=== PATIENT | female | born 1975 | race Caucasian/White ===

== ENCOUNTER 2017-10-25 21:16 | Emergency (ER) | payer BC, SELFPAY ==
[2017-10-25 21:17] VITALS: BP 124/79; PULSE 78; RESP 16; TEMP 36.7; O2SAT 100; BMI 21.4
--- NOTE | 2017-10-25 22:16 | US_ITS ---
STUDY: ABDOMINAL ULTRASOUND - RIGHT UPPER QUADRANT REASON FOR VISIT: Female, 42 years old. Right upper quadrant pain. TECHNIQUE: Ultrasound evaluation of the right upper quadrant was performed with real-time and static hamlin-scale imaging. TECHNICAL QUALITY: Adequate. COMPARISON: None. FINDINGS: Liver: The liver measures 15.6 cm. There is normal echogenicity of the liver. The bile ducts are within normal limits. There is hepatic color flow. The direction of portal flow is hepatopetal. There is no demonstrated mass lesion. Gallbladder: Normal distended gallbladder. The gallbladder wall measures 2 mm. There is a negative sonographic Sinclair's sign. There is no pericholecystic fluid. There are no gallstones. Common Bile Duct (C.B.D.): The common bile duct measures 3 mm. Pancreas: Normal size of the head, body and tail of the pancreas. There is normal echogenicity of the pancreas. There is no demonstrated pancreatic mass or cyst. Right Kidney: Normal size of the right kidney. The right kidney measures 11.1 x 4.5 x 5.5 cm. Normal renal cortex. The right cortex measures 1.4 cm. There is a 1.8 cm cyst in the lower pole of the right kidney with internal echoes/septations. There are small echogenic shadows in the left kidney, the largest measures about 6 mm which could represent focal scar or nonobstructing stones. There is no right hydronephrosis. US/Gallbladder IMPRESSION: No evidence of gallstones. Small cyst in the right kidney. Questionable small nonobstructing stone in the lower pole of the right kidney without evidence of hydronephrosis. Electronically Signed: Rodrigo Farr MD at 23:17 EDT Tel , Service support ,
[2017-10-25] MEDS: Ketorolac 30 MG/ML Syringe IV (22:32)
[2017-10-25] MEDS: proMETHazine 25 MG/ML Syringe 12.5 MG IV (22:32)
[2017-10-25] MEDS: 0.9% Normal Saline 1,000 ML 1000 ML IV (22:32)
[2017-10-25 22:51] LABS: Absolute Lymphocyte Count 2.17 X10^3/ul (0.83-4.51); Absolute Neutrophil Count 11.2 X10^3/uL (2.0-7.7); Basophil# 0.03 X10^3/uL; Basophil% 0.2 % (0-1); Eosinophil# 0.04 X10^3/uL; Eosinophils% 0.3 % (0-5); Hematocrit 39.3 % (37-47); Hemoglobin 12.8 g/dl (12.0-15.0); Lymphocyte # 2.17 X10^3/ul (4.0); Lymphocyte % 15.6 % (19-41); Mean Corp Hgb Conc 32.6 g/gl (32-36); Mean Corpuscular Hgb 29.8 pg (27.0-32.0); Mean Corpuscular Volume 91.4 fL (81-99); Mean Platelet Vol. 10.3 fl (6.2-12.0); Monocyte# 0.47 X10^3/uL; Monocyte% 3.4 % (0-10); Neutrophil # 11.21 X10^3/uL (2.7-7.7); Neutrophil % 80.4 % (47-70); POSITIVE COUNT NO; POSITIVE DIFFERENTIAL NO; POSITIVE MORPHOLOGY NO; Platelet Count 400 K/mm3 (150-450); RBC Distribution Width CV 13.4 % (11.6-14.6); RBC Distribution Width SD 44.5 fl (35.1-43.9); White Blood Count 13.9 K/mm3 (4.4-11.0)
[2017-10-25 23:11] LABS: AST(SGOT) 14 U/L (15-37); Alanine Aminotransfer ALT/SGPT 17 U/L (13-56); Albumin, Serum 4.1 g/dL (3.2-5.0); Alkaline Phosphatase 73 U/L (45-117); Anion Gap 7 (5-15); BUN 14 mg/dL (7-18); BUN/Creat Ratio 18.5 RATIO (10-20); Bilirubin, Direct 0.12 mg/dL (0.00-0.30); Calcium,Total 9.1 mg/dL (8.5-10.1); Chloride 106 mmol/L (98-107); Creatinine, Serum 0.76 mg/dL (0.55-1.02); EST Glomerular Filtration Rate 88 mL/min (>60); Est Glom Filt Rate - Afr Amer 106 mL/min (>60); Estimated Creatinine Clearance 78.14 ml/min; Globulin 3.6 g/dL (2.2-4.2); Glucose 92 mg/dL (74-106); Lipase 103 U/L (73-393); Potassium 3.8 mmol/L (3.5-5.1); Protein, Total 7.7 g/dL (6.4-8.2); Sodium Level 138 mmol/L (136-145)
--- NOTE | 2017-10-25 23:32 | ED.VISSUMM ---
- ER Visit Summary Date of Service: 10/25/17 Chief Complaint: Right upper quadrant abdominal pain. History of Present Illness: The patient is a 42 F past medical history of kidney stones. States that for the last 2 weeks she has had gradual intermittent right upper quadrant abdominal pain with associated nausea vomiting. Last menstrual period was 2-3 weeks ago. Denies any dysuria. Has had a history of kidney stones in the past. No other prior abdominal surgery. Denies any trauma. No fever. No diarrhea. Physical Examination: Middle-aged female no acute distress vital signs stable afebrile. H EENT exam moist mucous membranes otherwise unremarkable. Neck nontender no lymphadenopathy. Lungs clear to auscultation bilaterally. Heart regular rate and rhythm no murmur. Abdomen soft nondistended. Normal bowel sounds. No peritoneal signs. Mild right upper quadrant tenderness. No Sinclair sign. Right lower quadrants unremarkable. No signs of trauma to the abdomen. Moving all 4 extremities. Neurovascular intact. Calves nontender no edema. Back exam nontender. Neurologically awake and alert without focal deficits. Test Results: CBC slightly elevated 13.9 with a normal H&H. No bands. Chemistries normal. Liver enzymes normal. Lipase normal. Right upper quadrant ultrasound showed normal gallbladder. No gallstones. No wall thickening nor any pericholecystic fluid. There was a right renal cyst is an incidental finding. Emergency Department Course and Treatment: Patient treated with IV fluids, Toradol and Phenergan. Feeling improved. Abdomen benign. No peritoneal signs. Treatment Plan: Zofran as needed for nausea. Motrin for pain. Call and follow-up with her primary care physician and she will be assigned to Dr. Carlos Harris. She may need a HIDA scan to rule out gallbladder dysfunction since there is no signs of obstruction, infection or stone. Disposition: Discharge Impression: Acute right upper quadrant abdominal pain of uncertain etiology with nausea and vomiting This note was generated with [employer] dictation software. It may contain incorrect words, spelling, and punctuation that were not noted in review of the chart prior to signing ED Disposition - Plan for ED Patient: Chief Complaint: Abd Pain Referrals: Care Physician,No Primary [Primary Care Provider] -
--- NOTE | 2017-10-25 23:35 | ED.DCSUM_ITS ---
- ER Visit Summary Date of Service: 10/25/17 Chief Complaint: Right upper quadrant abdominal pain. History of Present Illness: The patient is a 42 F past medical history of kidney stones. States that for the last 2 weeks she has had gradual intermittent right upper quadrant abdominal pain with associated nausea vomiting. Last menstrual period was 2-3 weeks ago. Denies any dysuria. Has had a history of kidney stones in the past. No other prior abdominal surgery. Denies any trauma. No fever. No diarrhea. Physical Examination: Middle-aged female no acute distress vital signs stable afebrile. H EENT exam moist mucous membranes otherwise unremarkable. Neck nontender no lymphadenopathy. Lungs clear to auscultation bilaterally. Heart regular rate and rhythm no murmur. Abdomen soft nondistended. Normal bowel sounds. No peritoneal signs. Mild right upper quadrant tenderness. No Sinclair sign. Right lower quadrants unremarkable. No signs of trauma to the abdomen. Moving all 4 extremities. Neurovascular intact. Calves nontender no edema. Back exam nontender. Neurologically awake and alert without focal deficits. Test Results: CBC slightly elevated 13.9 with a normal H&H. No bands. Chemistries normal. Liver enzymes normal. Lipase normal. Right upper quadrant ultrasound showed normal gallbladder. No gallstones. No wall thickening nor any pericholecystic fluid. There was a right renal cyst is an incidental finding. Emergency Department Course and Treatment: Patient treated with IV fluids, Toradol and Phenergan. Feeling improved. Abdomen benign. No peritoneal signs. Treatment Plan: Zofran as needed for nausea. Motrin for pain. Call and follow- up with her primary care physician and she will be assigned to Dr. Carlos Harris. She may need a HIDA scan to rule out gallbladder dysfunction since there is no signs of obstruction, infection or stone. Disposition: Discharge Impression: Acute right upper quadrant abdominal pain of uncertain etiology with nausea and vomiting This note was generated with [employer] dictation software. It may contain incorrect words, spelling, and punctuation that were not noted in review of the chart prior to signing ED Disposition - Plan for ED Patient: Chief Complaint: Abd Pain Referrals: Care Physician,No Primary [Primary Care Provider] -
--- NOTE | 2017-10-25 23:35 | ED.DEP ---
ED Disposition - Plan for ED Patient: Disposition: Home or Assisted Living Chief Complaint: Abd Pain Instructions: ED Abdominal Pain Unkn Cause Prescriptions: Ondansetron [Zofran Odt] 4 mg PO Q4H PRN PRN #14 tab.rapdis PRN Reason: Nausea Referrals: Harley Edwards MD [STAFF PHYSICIAN] - As soon as possible Additional Instructions: Labs unremarkable. Ultrasound your gallbladder shows no gallstones or signs of gallbladder disease. You need to follow-up you may need a HIDA scan for further evaluation of your gallbladder. Tylenol Motrin for pain. Zofran as needed for nausea. Return to ER if feeling worse, increasing pain or fever.
[2017-10-25 23:49] VITALS: BP 114/65; PULSE 77; RESP 16; O2SAT 100
--- NOTE | 2017-10-25 23:50 | ED.RN ---
REVIEWED D/C INSTRUCTIONS, FOLLOW UP CARE, PRESCRIPTION, AND S/S THAT WOULD WARRANT A RETURN TO THE ED WITH PT. PT VERBALIZED AN UNDERSTANDING AND DENIES FURTHER QUESTIONS FOR THIS RN. PT SKIN P/W/D, RESP EVEN AND UNLABORED, PT A&O X 3, NO DISTRESS NOTED. PT AMBULATED OUT OF ED,GAIT STEADY.
== END 2017-10-25 23:52 | disposition home or self-care (01) ==
PROVIDERS: Emergency Provider Emergency Medicine
DX: R10.11 Right upper quadrant pain (principal); R11.2 Nausea with vomiting, unspecified; N28.1 Cyst of kidney, acquired; Z87.442 Personal history of urinary calculi
CPT/HCPCS: 76705; 80048; 80076; 83690; 85025; 99282; J7030; A4216

== ENCOUNTER → 2017-11-01 06:57 | Outpatient (CLI) | payer BC, SELFPAY ==
--- NOTE | 2017-11-01 07:08 | NM_ITS ---
Procedure: Hepatobiliary scan. History: Abdominal pain. Comparison: Ultrasound 10/25/2017 Technique: Patient was given a dose of 5.2 mCi technetium Choletec. Imaging was performed for 90 minutes. Findings: There is normal tracer uptake by liver. Common bile duct activity is seen by 10 minutes. Small bowel activity seen by 30 minutes. Gallbladder activity is first seen by 10 minutes and increases normally over the course of the exam. Gallbladder ejection fraction after fatty meal is within normal limits at 44 %. NM/Hepatobilliary Img w/Pharm Int IMPRESSION: Normal hepatobiliary scan. Normal gallbladder activity. Normal gallbladder ejection fraction. Electronically Signed: Kendrick Espinoza MD at 9:03 EDT , Service support ,
[2017-11-05 12:07] LABS: Endomysial Antibody IgA Negative (Negative)
[2017-11-05 12:53] LABS: Deamidated Gliadin IgA 5 units (0-19); Deamidated Gliadin IgG 3 units (0-19); Immunoglobulin A 173 mg/dL (87-352); t-Transglutaminase IgA <2 U/mL (0-3)
== END ==
PROVIDERS: Visit Provider Family Medicine
DX: R10.9 Unspecified abdominal pain (principal); K82.8 Other specified diseases of gallbladder
CPT/HCPCS: 78227; 82784; 83516; 86255; A9537

== ENCOUNTER → 2017-11-22 13:23 | Outpatient (CLI) | payer BC, SELFPAY ==
[2017-11-26 09:09] LABS: H. PYLORI STOOL AG Negative (Negative)
== END ==
PROVIDERS: Family Provider Family Medicine; PCP Family Medicine; Visit Provider Family Medicine
DX: R10.9 Unspecified abdominal pain (principal)

== ENCOUNTER → 2018-03-21 09:37 | Outpatient (CLI) | payer BC, SELFPAY ==
[2018-03-21 12:07] LABS: Absolute Neutrophil Count 5.4 X10^3/uL (2.0-7.7); Basophil# 0.05 X10^3/uL; Basophil% 0.6 % (0-1); Eosinophil# 0.12 X10^3/uL; Eosinophils% 1.5 % (0-5); Hematocrit 38.6 % (37-47); Hemoglobin 12.4 g/dl (12.0-15.0); Lymphocyte % 22.5 % (19-41); Mean Corp Hgb Conc 32.1 g/gl (32-36); Mean Corpuscular Hgb 29.7 pg (27.0-32.0); Mean Corpuscular Volume 92.6 fL (81-99); Mean Platelet Vol. 11.4 fl (6.2-12.0); Monocyte# 0.59 X10^3/uL; Monocyte% 7.4 % (0-10); Neutrophil # 5.43 X10^3/uL (2.7-7.7); Neutrophil % 67.9 % (47-70); Platelet Count 386 K/mm3 (150-450); RBC Distribution Width CV 14.3 % (11.6-14.6); RBC Distribution Width SD 47.5 fl (35.1-43.9); Red Blood Count 4.17 M/mm3 (4.2-5.4)
[2018-03-21 12:12] LABS: POSITIVE COUNT NO; POSITIVE DIFFERENTIAL NO; POSITIVE MORPHOLOGY NO
[2018-03-21 12:36] LABS: ALB/GLOB Ratio 1.1 RATIO (0.9-2.4); AST(SGOT) 19 U/L (15-37); Alanine Aminotransfer ALT/SGPT 22 U/L (13-56); Alkaline Phosphatase 66 U/L (45-117); Anion Gap 9 (5-15); BUN 18 mg/dL (7-18); BUN/Creat Ratio 21.9 RATIO (10-20); Calcium,Total 8.8 mg/dL (8.5-10.1); Chloride 105 mmol/L (98-107); Cholesterol 160 mg/dL (200); Creatinine, Serum 0.82 mg/dL (0.55-1.02); EST Glomerular Filtration Rate 80 mL/min (>60); Est Glom Filt Rate - Afr Amer 97 mL/min (>60); Globulin 3.5 g/dL (2.2-4.2); Glucose 82 mg/dL (74-106); High Density Lipoprotein 71 mg/dL; Potassium 3.6 mmol/L (3.5-5.1); Protein, Total 7.5 g/dL (6.4-8.2); Sodium Level 137 mmol/L (136-145); Thyroid Stim Hormone (TSH) 1.76 uIU/mL (0.358-3.74); Triglycerides 79 mg/dL; Very Low Density Lipoprotein 16 mg/dL (5-40)
== END ==
PROVIDERS: Family Provider Family Medicine; PCP Family Medicine; Visit Provider Family Medicine
DX: Z00.00 Encounter for general adult medical examination without abnormal findings (principal)
CPT/HCPCS: 36415; 80053; 80061; 84443; 85025

== ENCOUNTER 2018-06-13 06:12 | Day surgery (SDC) | payer BC, SELFPAY ==
[2018-05-30 07:42] VITALS: BMI 22.1
[2018-06-13] VITALS (7 sets, daily range): BP systolic 114–153; BP diastolic 67–91; PULSE 70–88; RESP 16; TEMP 36.8–37.3; O2SAT 98–100; BMI 22.1
--- NOTE | 2018-06-13 07:15 | IMM_PTH ---
PATIENT: TONY ZAMAN LOC: EN U#:[id number] AGE/SX: 43/F ROOM: RE06/13/[address]: Dr. Ranulfo Hernandez MD : 1975 BED: DIS: 06/13/2018 SPEC #: [id number] RECD: 06/13/18 13:30 STATUS: NELIA REQ #: [id number] ZACHARIAH: 06/13/18 07:[address]: Ranulfo Hernandez DEPT: IMMUNOHISTOCHEMISTRY RECD BY: Judy Duran ENTERED: 06/13/18 13:30 SP TYPE: IMMUNO OTHR DR: Dr. Nakul Reynolds MD Tissues: B - Stomach, NOS Procedures: H Pylori (initial) PHYSICIAN & INSTITUTION [place] [id number] SPECIMEN INFORMATION: Tissue Source: B - Antral biopsy Clinical Info: Epigastric pain, dysphagia Specimen Number: [id number] CPT code: 83695 METHODOLOGY: Deparaffinized sections of prefer/formalin-fixed tissue or PAP/DQ stained slides are incubated with monoclonal/polyclonal antibodies/oligonucleotide probes. Localization is made via biotin free immunoperoxidase method. Appropriate controls are performed and reacted as expected. Results on target cell population are indicated in the following table: RESULTS: ANTIBODY / CLONE RESULT Block B H Pylori (polyclonal) negative These tests were developed and their performance characteristics determined by [facility]. They may not have been cleared or approved by the U.S. Food and Drug Administration. The FDA has determined that such clearance or approval is not necessary. INTERPRETATION: B. Antral biopsy: Negative for Helicobacter pylori organisms. AM:yaakov 06/20/18
--- NOTE | 2018-06-13 07:15 | EGD_PTH ---
PATIENT: TONY ZAMAN LOC: EN U#:[id number] AGE/SX: 43/F ROOM: RE06/13/[address]: Dr. Ranulfo Hernandez MD : 1975 BED: DIS: 06/13/2018 SPEC #: [id number] RECD: 06/13/18 07:43 STATUS: NELIA KAYKAY #: [id number] ZACHARIAH: 06/13/18 07:[address]: Ranulfo Hernandez DEPT: SURGICAL PATHOLOGY RECD BY: Bakari Pichardo ENTERED: 06/13/18 11:28 SP TYPE: EGD BIOPSY GEOVANNA DR: Dr. Nakul Reynolds MD Tissues: A - Duodenum, NOS B - Gastric mucous membrane C - Esophageal mucous membrane Procedures: Surgery Specimen Level IV HEADER OPERATION: EGD PRE-OP DIAGNOSIS: Epigastric pain, dysphagia TISSUE SUBMITTED: A - Duodenal biopsy, B - Antral biopsy for H. pylori and pathology, C - Distal esophageal biopsy MICROSCOPIC DIAGNOSIS A. Duodenum, biopsy: Mild nonspecific chronic inflammation. B. Gastric antrum, biopsy: Mild chronic gastritis. C. Distal esophagus, biopsy: Gastroesophageal junction mucosa with mild chronic inflammation. AM:yaakov 06/14/18 COMMENT A. There is no significant flattening of villi. The lamina propria is not expanded by chronic inflammatory cells. No ulceration is seen and no transmural lymphoid aggregates are present. Clinical correlation is suggested. B. The results of immunohistochemistry for Helicobacter pylori will be reported separately ([id number]). MICROSCOPIC DESCRIPTION Slides are reviewed. GROSS DESCRIPTION A - Received in fixative is one container labeled with the patient's name and designated duodenal biopsy. The specimen consists of one irregular fragment of light strange soft tissue that measures 0.6 x 0.2 x 0.1 cm. The specimen is totally submitted in one cassette. B - Received in fixative is one container labeled with the patient's name and designated antral biopsy. The specimen consists of one irregular fragment of light strange soft tissue that measures 0.4 x 0.3 x 0.1 cm. The specimen is totally submitted in one cassette. C - Received in fixative is one container labeled with the patient's name and designated distal esophageal biopsy. The specimen consists of two irregular fragments of light strange soft tissue that in aggregate measure 0.7 x 0.4 x 0.1 cm. The specimen is totally submitted in one cassette. / SJ:rg 06/13/18 TC:3 CPT: 45862 x3
--- NOTE | 2018-06-13 07:27 | OP.ENDO_ITS ---
Patient Name: Mari Trejo Procedure Date: 06/13/2018 7:03 AM Date of : 1975 Age: 43 Procedure: Upper GI endoscopy Indications: Abdominal pain in the right upper quadrant Providers: Ranulfo Hernandez MD Referring MD: Ranulfo Hernandez MD Medicines: Midazolam 3.5 mg IV, Meperidine 100 mg IV Complications: No immediate complications. Procedure: Pre-Anesthesia Assessment: - Prior to the procedure, a History and Physical was performed, and patient medications and allergies were reviewed. The patient's tolerance of previous anesthesia was also reviewed. The risks and benefits of the procedure and the sedation options and risks were discussed with the patient. All questions were answered, and informed consent was obtained. Prior Anticoagulants: The patient has taken no previous anticoagulant or antiplatelet agents. ASA Grade Assessment: II - A patient with mild systemic disease. After reviewing the risks and benefits, the patient was deemed in satisfactory condition to undergo the procedure. After obtaining informed consent, the endoscope was passed under direct vision. Throughout the procedure, the patient's blood pressure, pulse, and oxygen saturations were monitored continuously. The gastroscope was introduced through the mouth, and advanced to the second part of duodenum. The upper GI endoscopy was accomplished without difficulty. The patient tolerated the procedure well. Moderate Sedation: Moderate (conscious) sedation was personally administered by the endoscopist. The following parameters were monitored: oxygen saturation, heart rate, blood pressure, and response to care. Total physician intraservice time was 15 minutes. Scope In: 7:14:20 AM Scope Out: 7:20:10 AM Total Procedure Duration Time 0 hours 5 minutes 50 seconds Findings: The Z-line was variable and was found 38 cm from the incisors. Biopsies were taken with a cold forceps for histology. A small hiatal hernia was present. Diffuse mildly erythematous mucosa without bleeding was found in the gastric antrum. Biopsies were taken with a cold forceps for histology. Bile stained The examined duodenum was normal. Biopsies were taken with a cold forceps for histology. Impression: - Z-line variable, 38 cm from the incisors. Biopsied. - Small hiatal hernia. - Erythematous mucosa in the antrum. Biopsied. Bile staining noted in the stomach - Normal examined duodenum. Biopsied. Recommendation: - Await pathology results. - Resume previous diet. - Continue present medications. - Discharge patient to home. - Telephone my office for pathology results in 1 week. - Use Prilosec (omeprazole) 40 mg PO daily. Pending pathology might consider carafate 1mg orally four times daily b/o bile reflux Procedure Code(s): --- Professional --- 42954, Esophagogastroduodenoscopy, flexible, transoral; with biopsy, single or multiple 32849, 59, Moderate sedation services provided by the same physician or other qualified health mall plant caretaker performing the diagnostic or therapeutic service that the sedation supports, requiring the presence of an independent trained observer to assist in the monitoring of the patient's level of consciousness and physiological status; initial 15 minutes of intraservice time, patient age 5 years or older Diagnosis Code(s): --- Professional --- K22.8, Other specified diseases of esophagus K44.9, Diaphragmatic hernia without obstruction or gangrene K31.89, Other diseases of stomach and duodenum R10.11, Right upper quadrant pain CPT copyright 2017 [employer]. All rights reserved. The codes documented in this report are preliminary and upon brewery worker review may be revised to meet current compliance requirements. Ranulfo Hernandez MD 06/13/2018 7:27:20 AM This report has been signed electronically. Number of Addenda: 0 Note Initiated On: 06/13/2018 7:03 AM
--- OUTSIDE RECORDS SUMMARY | 2018-07-30 00:15 | XMS RPT_ITS ---
:1975 Author Organization OHIP Support Name Relationship Address Phone ANDREE TREJO Unavailable [address] + [place] [address] KEILA Unavailable [address] + [place] [address] BISHOP ANDREE Unavailable [address] + [place] [address] KE[facility] Unavailable [address] + [place] [address] TREJO, ANDREE Unavailable [address] + [place] [address] [place] Unavailable [address] + [place] [address] [facility] Unavailable [address] + [place] [address] TREJO, ANDREE Unavailable [address] + [place] [address] [facility] [place] Unavailable [address] + [place] [address] PELON CASTANEDA Unavailable [address] + [place] [address] TREJO, ANDREE Unavailable [address] + [place] [address] [facility] [place] Unavailable [address] + [place] [address] MACK CASTANEDADY Unavailable [address] + [place] [address] TREJO, ANDREE Unavailable [address] + [place] [address] [facility] [place] Unavailable [address] + [place] [address] PELON CASTANEDA Unavailable [address] + [place] [address] TREJONICK HERNANDEZINALD Unavailable [address] + [place] [address] [facility] [place] Unavailable [address] + [place] [address] PELON CASTANED[facility] Unavailable [address] + [place] [address] Care Team Providers Name Role Phone MANA JAIN (PA) Referring Unavailable Cebul, Ranulfo Attending Unavailable Cebul, Ranulfo Referring Unavailable Primay Care Physicia, No Primary Care Unavailable Nikunj Ferro Attending Unavailable SchinNakul mccarty Attending Unavailable SchNakul fletcher Referring Unavailable Primay Care Physicia, No Primary Care Unavailable Nakul Reynolds Attending Unavailable Nakul Reynolds Referring Unavailable Nakul Reynolds Primary Care Unavailable Nakul Reynolds Attending Unavailable Nakul Reynolds Primary Care Unavailable Cebul, Ranulfo Attending Unavailable Nakul Reynolds Referring Unavailable Cebul, Ranulfo Attending Unavailable Cebul, Ranulfo Referring Unavailable SchNakul fletcher Primary Care Unavailable PROBLEMS PROBLEMS DATE TYPE CONDITION / CODE ATTENDING STATUS SOURCE 07/16/2018 Unknown R10.11 - Right Cebufranklin, Ranulfo Active [facility] upper quadrant pain [facility] / R10.11(ICD-10) Hospital Repository 07/16/2018 Unknown K22.8 - Other Cebul, Ranulfo Active [facility] specified diseases [facility] of esophagus / Hospital K22.8(ICD-10) Repository 07/16/2018 Unknown K44.9 - Cebul, Ranulfo Active [facility] Diaphragmatic [facility] hernia without Hospital obstruction or Repository gangrene / K44.9(ICD-10) 07/16/2018 Unknown K31.89 - Other Cebul, Ranulfo Active [facility] diseases of stomach Community and duodenum / Hospital K31.89(ICD-10) Repository 05/30/2018 Unknown R10.9 - Unspecified Cebul, Ranulfo Active [facility] abdominal pain / Community R10.9(ICD-10) Hospital Repository 05/30/2018 Unknown R10.13 - Epigastric Ranulfo Hernandez Active [facility] pain / Community R10.13(ICD-10) Hospital Repository 05/30/2018 Unknown R13.10 - Dysphagia, Ranulfo Hernandez Active [facility] unspecified / Community R13.10(ICD-10) Hospital Repository 10/25/2017 Active Right upper NA Active [facility] quadrant pain / [facility] [place] R10.11(ICD-10) Repository PROCEDURES PROCEDURES No Procedure Records FoundRESULTS RESULTS OPERATIVE REPORT - Observed: 06/13/2018 Status: F Source: [facility] 7:27 AM [facility] REPOSITORY [facility] Medical Records Department [address] [place] [address] Operative Report - Endoscopy MR#: [id number] Acct: [id number] Name: TONY TREJO Rep #: [id number] : 1975 43 From: Ranulfo Hernandez MD PCP: Nakul Reynolds MD Status: REG [facility] Patient Name: Tony Trejo Procedure Date: 06/13/2018 7:03 AM Date of : 1975 Age: 43 Procedure: Upper GI endoscopy Indications: Abdominal pain in the right upper quadrant Providers: Ranulfo Hernandez MD Referring MD: Ranulfo Hernandez MD Medicines: Midazolam 3.5 mg IV, Meperidine 100 mg IV Complications: No immediate complications. Procedure: Pre-Anesthesia Assessment: - Prior to the procedure, a History and Physical was performed, and patient medications and allergies were reviewed. The patient's tolerance of previous anesthesia was also reviewed. The risks and benefits of the procedure and the sedation options and risks were discussed with the patient. All questions were answered, and informed consent was obtained. Prior Anticoagulants: The patient has taken no previous anticoagulant or antiplatelet agents. ASA Grade Assessment: II - A patient with mild systemic disease. After reviewing the risks and benefits, the patient was deemed in satisfactory condition to undergo the procedure. After obtaining informed consent, the endoscope was passed under direct vision. Throughout the procedure, the patient's blood pressure, pulse, and oxygen saturations were monitored continuously. The gastroscope was introduced through the mouth, and advanced to the second part of duodenum. The upper GI endoscopy was accomplished without difficulty. The patient tolerated the procedure well. Moderate Sedation: Moderate (conscious) sedation was personally administered by the endoscopist. The following parameters were monitored: oxygen saturation, heart rate, blood pressure, and response to care. Total physician intraservice time was 15 minutes. Scope In: 7:14:20 AM Scope Out: 7:20:10 AM Total Procedure Duration Time 0 hours 5 minutes 50 seconds Findings: The Z-line was variable and was found 38 cm from the incisors. Biopsies were taken with a cold forceps for histology. A small hiatal hernia was present. Diffuse mildly erythematous mucosa without bleeding was found in the gastric antrum. Biopsies were taken with a cold forceps for histology. Bile stained The examined duodenum was normal. Biopsies were taken with a cold forceps for histology. Impression: - Z-line variable, 38 cm from the incisors. Biopsied. - Small hiatal hernia. - Erythematous mucosa in the antrum. Biopsied. Bile staining noted in the stomach - Normal examined duodenum. Biopsied. Recommendation: - Await pathology results. - Resume previous diet. - Continue present medications. - Discharge patient to home. - Telephone my office for pathology results in 1 week. - Use Prilosec (omeprazole) 40 mg PO daily. Pending pathology might consider carafate 1mg orally four times daily b/o bile reflux Procedure Code(s): --- Professional --- 52589, Esophagogastroduodenoscopy, flexible, transoral; with biopsy, single or multiple 17186, 59, Moderate sedation services provided by the same physician or other qualified health home care nurse performing the diagnostic or therapeutic service that the sedation supports, requiring the presence of an independent trained observer to assist in the monitoring of the patient's level of consciousness and physiological status; initial 15 minutes of intraservice time, patient age 5 years or older Diagnosis Code(s): --- Professional --- K22.8, Other specified diseases of esophagus K44.9, Diaphragmatic hernia without obstruction or gangrene K31.89, Other diseases of stomach and duodenum R10.11, Right upper quadrant pain CPT copyright 2017 [employer] [place] [employer]. All rights reserved. The codes documented in this report are preliminary and upon jewel hole driller review may be revised to meet current compliance requirements. Ranulfo Hernandez MD 06/13/2018 7:27:20 AM This report has been signed electronically. Number of Addenda: 0 Note Initiated On: 06/13/2018 7:03 AM 06/13/18726 Date Ranulfo Hernandez MD Cosigner Signature: Date (if indicated) CC: Nakul Reynolds MD; Ranulfo Hernandez MD Date Dictated: 06/13/18702 Date Transcribed: Sanitation Truck Cleaner: MAXIMINO Signed EGD (PICK SITE) Observed: 06/13/2018 Status: F Source: [facility] 7:15 AM [facility] REPOSITORY Patient: TONY TREJO : 1975 (43/F) Acct Num: [id number] Phys: David BOB,Ranulfo Unit Num: [id number] Loc: EN Specimen: [id number] Received: 06/13/18742 Spec Type: EGD BIOPSY TISSUES 1 TISSUES: A. Duodenum, NOS B. Gastric mucous membrane C. Esophageal mucous membrane COMMENT A. There is no significant flattening of villi. The lamina propria is not expanded by chronic inflammatory cells. No ulceration is seen and no transmural lymphoid aggregates are present. Clinical correlation is suggested. B. The results of immunohistochemistry for Helicobacter pylori will be reported separately ([id number]). GROSS DESCRIPTION A - Received in fixative is one container labeled with the patient's name and designated duodenal biopsy. The specimen consists of one irregular fragment of light strange soft tissue that measures 0.6 x 0.2 x 0.1 cm. The specimen is totally submitted in one cassette. B - Received in fixative is one container labeled with the patient's name and designated antral biopsy. The specimen consists of one irregular fragment of light strange soft tissue that measures 0.4 x 0.3 x 0.1 cm. The specimen is totally submitted in one cassette. C - Received in fixative is one container labeled with the patient's name and designated distal esophageal biopsy. The specimen consists of two irregular fragments of light strange soft tissue that in aggregate measure 0.7 x 0.4 x 0.1 cm. The specimen is totally submitted in one cassette. / SJ:yaakov 06/13/18 TC:3 CPT: 87577 x3 HEADER OPERATION: EGD PRE-OP DIAGNOSIS: Epigastric pain, dysphagia TISSUE SUBMITTED: A - Duodenal biopsy, B - Antral biopsy for H. pylori and pathology, C - Distal esophageal biopsy MICROSCOPIC DESCRIPTION Slides are reviewed. MICROSCOPIC DIAGNOSIS A. Duodenum, biopsy: Mild nonspecific chronic inflammation. B. Gastric antrum, biopsy: Mild chronic gastritis. C. Distal esophagus, biopsy: Gastroesophageal junction mucosa with mild chronic inflammation. AM:yaakov 06/14/18 Signed Bishnu Hernandez DO 06/14/18 <signature on file> Performed By: #### PEGD #### [facility] [address] [place], [address] IMMUNOHISTOCHEMISTRY Observed: 06/13/2018 Status: F Source: [facility] 7:15 [facility] REPOSITORY Patient: TONY TREJO : 1975 (43/F) Acct Num: [id number] Phys: David BOB,Ranulfo Unit Num: [id number] Loc: EN Specimen: [id number] Received: 06/13/18 - 1330 Spec Type: IMMUNO TISSUES 1 TISSUES: B. Stomach, NOS SPECIMEN INFORMATION: Tissue Source: B - Antral biopsy Clinical Info: Epigastric pain, dysphagia Specimen Number: [id number] CPT code: 17653 METHODOLOGY: Deparaffinized sections of prefer/formalin-fixed tissue or PAP/DQ stained slides are incubated with monoclonal/polyclonal antibodies/oligonucleotide probes. Localization is made via biotin free immunoperoxidase method. Appropriate controls are performed and reacted as expected. Results on target cell population are indicated in the following table: RESULTS: ANTIBODY / CLONE RESULT Block B H Pylori (polyclonal) negative These tests were developed and their performance characteristics determined by [facility]. They may not have been cleared or approved by the U.S. Food and Drug Administration. The FDA has determined that such clearance or approval is not necessary. INTERPRETATION: B. Antral biopsy: Negative for Helicobacter pylori organisms. AM:yaakov 06/20/18 PHYSICIAN AND INSTITUTION [facility] [address], [place] [address] Signed Bishnu Hernandez, DO 06/20/18 <signature on file> Performed By: #### PIMM #### [facility] [address] [place], [address] SURGERY VISIT REPORT Observed: 05/30/2018 Status: F Source: [facility] 8:10 AM [facility] REPOSITORY [facility] [address] [place] [address]. 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 Driver Required: No Is patient in pain?: No Allergies ketorolac [From Toradol] Allergy (Verified 05/30/18 07:43) Unknown Medications omeprazole 40 mg capsule,delayed release 40 mg PO DAILY 05/30/18 [History Confirmed 05/30/18] Is last menstrual period known: No Post menopausal: No Patient : No PFSH Medical History Dysphagia (Acute) Epigastric pain (Acute) Anxiety (Acute) GERD (gastroesophageal reflux disease) (Acute) Surgical History History of dilatation and curettage (Acute) History of parathyroidectomy (Acute) History of tonsillectomy (Acute) History of wisdom tooth extraction (Acute) Family History Father Heart disease Myocardial infarction Mother Breast cancer Rheumatoid arthritis Brother CVA (cerebral vascular accident) Social History Smoking Status: Never smoker HPI HPI HPI: TONY TREJO, is a 43 F who presents to the office today for surgical consultation regarding abdominal pain. The patient is referred by her primary care is a Dr Nakul Reynolds and a written copy of my surgical consult palpitations will be returned to him. Pleasant 43-year-old female. For at least 9 months she has had problems with right upper quadrant abdominal pain. Does not appear to be musculoskeletal is not aggravated by activity. It does not wake her at night. She has had a previous history of classic heartburn and reflux but this seems to be different. On one occasion she had such severe pain she presented to the emergency room on October 25, 2017. At that time her white count 13.9 with a hemoglobin 12.8 hematocrit 39.3 platelet count 400,000 with 80% segs. BUN 14 creatinine 0.76. Liver function tests were normal. Lipase was normal. She had a gallbladder ultrasound performed on October 25 showing no evidence of gallstones. Small cyst in the right kidney. Possible small right renal cyst. She has not had any urinary symptoms. On November 01, 2017 she had a hepatobiliary scan. This was normal with an ejection fraction of 44%. On March 21, 2018 she had laboratory repeated at this point demonstrating a normal white blood cell count of 8000. Hemoglobin remained stable. The patient has been treated with a trial of omeprazole. That seemed to improve her symptoms. It certainly improved her swallowing issues. She then went on a hiatus off the medication and had recurrence of the right upper quadrant pain and some increased difficulty with swallowing again. She has never had a previous upper endoscopy. She denies bright red blood per rectum or melena. She does not use tobacco and infrequently uses alcohol. She does use Excedrin approximately once weekly. She has no family history of colon polyps or colon cancer. Her father did have peptic ulcer disease. 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 The physical activity does not increase her pain. She has not had any unexpected weight change ROS General General: Yes fatigue; no weight change, appetite, colon cancer, breast cancer or weakness HEENT HEENT: No difficulty swallowing, eye injury, eye surgery, swollen glands or hoarseness Endo Endocrine: No thyroid disease, diabetes mellitus, thyroid cancer, Hair loss, heat intolerance or cold intolerance Cardio Cardiovascular: No murmur, pacemaker, heart disease, atrial fibrillation, high blood pressure, heart attack, heart stent, palpitations, shortness of breat with exertion or chest pain Psych Psychiatric: Yes anxiety; no depression or hearing voices Resp Respiratory: No shortness of breath, No sleep apnea, No cough, No COPD, No asthma, No emphysema, No wheezing Gastro Gastrointestinal: Yes abdominal pain, No nausea or vomiting, Yes diarrhea, Yes constipation, No blood in stool, Yes acid reflux, No hemorrhoids, No ulcers, No gallbladder problem, No black,tarry stools Stephan Hematologic: No blood thinners, No blood disorders, No bleeding, No anemia, No blood clots Neuro Neurologic: No weakness Exam Const General: cooperative, healthy appearing, comfortable, no acute distress Nutritional Appearance: average body habitus Orientation: alert, awake, oriented x3 HENMT Head: normal to inspection Eyes General: appearance normal, both eyes and all related structures Chest Chest palpation AND inspection: normal inspection of the chest Resp Effort AND Inspection: normal respiratory effort Auscultation: clear to auscultation bilaterally Cardio Rate: regular rate Rhythm: regular rhythm Heart Sounds: no murmurs GI Palpation: soft, no hepatosplenomegaly Auscultation: normal bowel sounds Musc Cervical Spine: normal cervical lordosis Skin General: no rashes or lesions noted Neuro Cranial Nerves: CN's II-XI intact bilaterally Extrem General: no clubbing, cyanosis or edema Psych Affect: normal affect Assessment AND Plan Problems 1. Epigastric pain R10.13 2. Esophageal dysphagia R13.10 Plan 43-year-old female with esophageal dysphasia and epigastric/right upper quadrant abdominal pain. Ultrasound and HIDA scan were normal. She seems improved with omeprazole with recurrence of symptoms off the medication. I do believe that it is pertinent to offer her a esophagogastroduodenoscopy with possible biopsy. The patient has had a history of long-term reflux. She may have distal esophageal stricturing/Schatzki ring. She may additionally be a candidate for esophageal dilatation. In detail I discussed with her the technique, benefits, risks, alternatives. I anticipate antral and distal and even mid esophageal biopsies. We will proceed with hydrostatic dilatation if indicated at that setting. She has had an opportunity to ask and have questions answered. I very much appreciate the kind opportunity of assisting with her surgical care We will schedule and proceed as noted CC: Dr Nakul Hernandez M.D., F.A.C.S. Orders Orders: Coding Level of Care Code Detailed, Low Diagnoses Epigastric pain R10.13 Esophageal dysphagia R13.10 Dysphagia type: esophageal phase 05/30/18 0810 <Electronically signed by Ranulfo Hernandez MD> Date Ranulfo Hernandez MD Cosigner Signature: Date (if applicable) CC: Nakul Reynolds MD CBC W/DIFF, AUTOMATED Collected: 03/21/2018 Status: F Source: [facility] 9:38 AM [facility] REPOSITORY Order Comment: Order Date: 03/21/18 Order Info: [id number] - CBCD TYPE CODE TESTS RESULT OUT OF RANGE REFERENCE UNITS LAB L100.1000 4.4-11.0 K/mm3 Normal WBC 8.0 LAB L100.1200 4.2-5.4 M/mm3 Low RBC 4.17 LAB L100.1300 12.0-15.0 g/dl Normal HGB 12.4 LAB L100.1400 37-47 % Normal HCT 38.6 LAB L100.1500 81-99 fL Normal MCV 92.6 LAB L100.1600 27.0-32.0 pg Normal MCH 29.7 LAB L100.1700 32-36 g/gl Normal MCHC 32.1 LAB L100.1810 11.6-14.6 % Normal RDW CV 14.3 LAB L100.1820 35.1-43.9 fl High RDW SD 47.5 LAB L100.1900 150-450 K/mm3 Normal PLT 386 LAB L100.2000 6.2-12.0 fl Normal MPV 11.4 LAB L100.2100 47-70 % Normal NEUT% 67.9 LAB L100.2200 19-41 % Normal LY% 22.5 LAB L100.2300 0-10 % Normal MONO% 7.4 LAB L100.2400 0-5 % Normal EO% 1.5 LAB L100.2500 0-1 % Normal BASO% 0.6 LAB L100.2550 0.0-0.9 % Normal IM GRAN % 0.100 Result Comment: IG% - Immature Granulocytes (promyelocytes, myelocytes and metamyelocytes) > 1% indicates that a LEFT SHIFT is Present. LAB L100.2620 2.0-7.7 X10 3/uL Normal Absolute Neut 5.4 LAB L100.2720 0.83-4.51 X10 3/ul Normal Absolute Lymph 1.80 Performed By: #### L100.0100, L500.4050, L500.4100, L501.9520 #### [facility] [address] [place], [address] COMPREHENSIVE METABOLIC Collected: 03/21/2018 Status: F Source: [facility] 9:38 AM [facility] REPOSITORY Order Comment: Order Date: 03/21/18 Order Info: [id number] - CMP Order Info: [id number] - LIPID Order Info: [id number] - TSH TYPE CODE TESTS RESULT OUT OF RANGE REFERENCE UNITS LAB L501.0100 74-106 mg/dL Normal GLU 82 Result Comment: Please note revised GLUCOSE reference range effective 2017. LAB L501.1000 7-18 mg/dL Normal BUN 18 LAB L501.1100 0.55-1.02 mg/dL Normal CREAT,SERUM 0.82 Result Comment: The validity of the calculated GFR AND GFRAA in patients over 70 years has not been determined. Clinical correlation is essential. LAB L501.1110 >60 mL/min Normal EST GFR 80 Result Comment: Non- GFR Calc LAB L501.1115 >60 mL/min Normal EST GFR - AA 97 Result Comment: GFR Calc LAB L501.1300 10-20 RATIO High BUN/CRE 21.9 LAB L501.1500 6.4-8.2 g/dL T Normal PROT 7.5 LAB L501.1800 3.2-5.0 g/dL Normal ALB 4.0 LAB L501.1950 2.2-4.2 g/dL Normal GLOB 3.5 LAB L501.2000 0.9-2.4 RATIO Normal A/G 1.1 LAB L501.2200 8.5-10.1 mg/dL CA Normal 8.8 LAB L501.4100 15-37 U/L Normal AST 19 LAB L501.4305 45-117 U/L Normal ALK P 66 LAB L501.4405 13-56 U/L Normal ALT 22 LAB L501.4600 0.20-1.00 mg/dL T Normal BILI 0.60 LAB L501.5300 136-145 mmol/L NA Normal 137 LAB L501.5600 3.5-5.1 mmol/L K Normal 3.6 LAB L501.5900 98-107 mmol/L CL Normal 105 LAB L501.6100 21.0-32.0 mmol/L Normal CO2 23.0 LAB L501.6200 5-15 Normal GAP 9 Performed By: #### L100.0100, L500.4050, L500.4100, L501.9520 #### [facility] [address] [place], [place], [address] LIPID PROFILE Collected: 03/21/2018 Status: F Source: [facility] 9:38 AM [facility] REPOSITORY Order Comment: Order Date: 03/21/18 Order Info: [id number] - CMP Order Info: [id number] - LIPID Order Info: [id number] - TSH TYPE CODE TESTS RESULT OUT OF RANGE REFERENCE UNITS LAB L501.4900 200 mg/dL Normal CHOL 160 Result Comment: <200 mg/dL Desirable 200-240 mg/dL Borderline >240 mg/dL High Risk LAB L501.5000 mg/dL Normal TRIG 79 Result Comment: The drugs N-Acetylcysteine and Metamizole may falsely depress this assay. Serum Triglycerides Reference Interval Normal <150 mg/dL Borderline high 150 - 199 mg/dL High 200 - 499 mg/dL Very High > or = 500 mg/dL LAB L501.6400 mg/dL Normal HDL 71 Result Comment: The drugs N-Acetylcysteine and Metamizole may falsely depress this assay. Reference Range HDL <40 mg/dL Low HDL Cholesterol HDL >or= 60 mg/dL High HDL Cholesterol LAB L501.6500 0-130 mg/dL Normal LDL 73 LAB L501.6600 5-40 mg/dL Normal VLDL 16 Performed By: #### L100.0100, L500.4050, L500.4100, L501.9520 #### [facility] [address] [place], [address] THYROID STIM HORMONE Collected: 03/21/2018 Status: F Source: [facility] ([facility]) 9:38 AM [facility] REPOSITORY Order Comment: Order Date: 03/21/18 Order Info: [id number] - CMP Order Info: [id number] - LIPID Order Info: [id number] - TSH TYPE CODE TESTS RESULT OUT OF RANGE REFERENCE UNITS LAB L501.9520 0.358-3.74 uIU/mL Normal TSH 1.76 Performed By: #### L100.0100, L500.4050, L500.4100, L501.9520 #### [facility] [address] [place], [address] H. PYLORI STOOL AG Collected: 11/22/2017 Status: F Source: [facility] 12:00 AM [facility] REPOSITORY TYPE CODE TESTS RESULT OUT OF RANGE REFERENCE UNITS LAB L3100.1950 Negative Normal H PYLORI Negative STL AG Result Comment: Performed at: [facility] [id number] Cable Engineer Outside Plant: Daniel Zeng MD, Phone: [phone] Performed By: #### L3100.1950 #### [facility] (refer to report for specific site) refer to report for address and phone number NICOL QUAN Collected: 11/01/2017 Status: F Source: [facility] 3:13 PM [facility] REPOSITORY Order Comment: Order Date: 11/01/17 Order Info: [id number] - CELAB TYPE CODE TESTS RESULT OUT OF RANGE REFERENCE UNITS LAB L3410.2500 0-19 units ANTIGLIADIN Normal IGA 5 Result Comment: Negative 0 - 19 Weak Positive 20 - 30 Moderate to Strong Positive >30 LAB L3410.2600 0-19 units ANTIGLIADIN Normal IGG 3 Result Comment: Negative 0 - 19 Weak Positive 20 - 30 Moderate to Strong Positive >30 LAB L3410.2650 87-352 mg/dL Normal IMMUNO A 173 Result Comment: Performed at: [facility] [address] [id number] [employer] Engineer Outside Plant: Jorge Marroquin PhD, Phone: [phone] LAB L3410.2900 0-3 U/mL Normal tTG IGA <2 Result Comment: Negative 0 - 3 Weak Positive 4 - 10 Positive >10 Tissue Transglutaminase (tTG) has been identified as the endomysial antigen. Studies have demonstr- ated that endomysial IgA antibodies have over 99% specificity for gluten sensitive enteropathy. LAB L3410.2950 0-5 U/mL Normal tTG IGG <2 Result Comment: Negative 0 - 5 Weak Positive 6 - 9 Positive >9 LAB L3410.2975 Negative Normal ENDOMYSIAL IGA Negative Performed By: #### L3410.2350 #### [facility] (refer to report for specific site) refer to report for address and phone number HEPATOBILLIARY IMG Observed: 11/01/2017 Status: F Source: [place] W/PHARM INT 7:09 AM [facility] REPOSITORY [facility] Imaging Services [address] [facility] [place] [address] Hepatobilliary Img w/Pharm Int MR#: [id number] Acct: [id number] Name: TONY TREJO Rubens Rep #: [id number] : 1975 F 42 From: Kendrick Espinoza MD PCP: Care Physician, No Primary Status: REG CLI Study: Hepatobilliary Img w/Pharm Int Date of Exam: 11/01/17 Exam# [id number] Ordering Dr: Nakul Reynolds MD Procedure: Hepatobiliary scan. History: Abdominal pain. Comparison: Ultrasound 10/25/2017 Technique: Patient was given a dose of 5.2 mCi technetium Choletec. Imaging was performed for 90 minutes. Findings: There is normal tracer uptake by liver. Common bile duct activity is seen by 10 minutes. Small bowel activity seen by 30 minutes. Gallbladder activity is first seen by 10 minutes and increases normally over the course of the exam. Gallbladder ejection fraction after fatty meal is within normal limits at 44 %. NM/Hepatobilliary Img w/Pharm Int IMPRESSION: Normal hepatobiliary scan. Normal gallbladder activity. Normal gallbladder ejection fraction. Electronically Signed: Kendrick Espinoza MD at 9:03 EDT , Service support , CC: No Primary Care Physician; Nakul Reynolds MD Sanitation Truck Cleaner: Signed EMERGENCY DEPARTMENT Observed: 10/26/2017 Status: F Source: [place] SUMMARY 12:35 AM [facility] REPOSITORY [facility] Medical Records Department [address] [place] [address] Emergency Department Summary 10/25/17 2332 MR#: [id number] Acct: [id number] Name: TONY TREJO Rep #: [id number] : 1975 42 From: Nikunj Ferro MD PCP: Care Physician, No Primary Status: DEP ER - ER Visit Summary Date of Service: 10/25/17 Chief Complaint: Right upper quadrant abdominal pain. History of Present Illness: The patient is a 42 F past medical history of kidney stones. States that for the last 2 weeks she has had gradual intermittent right upper quadrant abdominal pain with associated nausea vomiting. Last menstrual period was 2-3 weeks ago. Denies any dysuria. Has had a history of kidney stones in the past. No other prior abdominal surgery. Denies any trauma. No fever. No diarrhea. Physical Examination: Middle-aged female no acute distress vital signs stable afebrile. H EENT exam moist mucous membranes otherwise unremarkable. Neck nontender no lymphadenopathy. Lungs clear to auscultation bilaterally. Heart regular rate and rhythm no murmur. Abdomen soft nondistended. Normal bowel sounds. No peritoneal signs. Mild right upper quadrant tenderness. No Sinclair sign. Right lower quadrants unremarkable. No signs of trauma to the abdomen. Moving all 4 extremities. Neurovascular intact. Calves nontender no edema. Back exam nontender. Neurologically awake and alert without focal deficits. Test Results: CBC slightly elevated 13.9 with a normal H AND H. No bands. Chemistries normal. Liver enzymes normal. Lipase normal. Right upper quadrant ultrasound showed normal gallbladder. No gallstones. No wall thickening nor any pericholecystic fluid. There was a right renal cyst is an incidental finding. Emergency Department Course and Treatment: Patient treated with IV fluids, Toradol and Phenergan. Feeling improved. Abdomen benign. No peritoneal signs. Treatment Plan: Zofran as needed for nausea. Motrin for pain. Call and follow-up with her primary care physician and she will be assigned to Dr. Carlos Harris. She may need a HIDA scan to rule out gallbladder dysfunction since there is no signs of obstruction, infection or stone. Disposition: Discharge Impression: Acute right upper quadrant abdominal pain of uncertain etiology with nausea and vomiting This note was generated with [email or web address] dictation software. It may contain incorrect words, spelling, and punctuation that were not noted in review of the chart prior to signing ED Disposition - Plan for ED Patient: Chief Complaint: Abd Pain Referrals: Care Physician,No Primary [Primary Care Provider] - What to do if you have Problems For any increased pain, shortness of breath, bleeding, nausea or vomiting, chest pain, or any unexpected problems, contact your Primary Care Provider. Call [facility] ([phone]) or report to the closest Emergency Room. Call 911 if necessary. 10/26/17 0035 <Electronically signed by Nikunj Ferro MD> Date Nikunj Ferro MD Cosigner Signature (If Indicated): Date CC: No Primary Care Physician DISCHARGE INSTRUCTION Observed: 10/26/2017 Status: F Source: [place] 12:35 AM [facility] REPOSITORY [facility] Medical Records Department [address] [place] [address] Discharge Instruction 10/25/17 2335 MR#: [id number] Acct: [id number] Name: PETAR TREJOEY Rubens Rep #: [id number] : 1975 42 From: Nikunj Ferro MD PCP: Care Physician, No Primary Status: [facility] ER ED Disposition - Plan for ED Patient: Disposition: Home or Assisted Living Chief Complaint: Abd Pain Instructions: ED Abdominal Pain Unkn Cause Prescriptions: Ondansetron [Zofran Odt] 4 mg PO Q4H PRN PRN #14 tab.rapdis PRN Reason: Nausea Referrals: Harley Edwards MD [STAFF PHYSICIAN] - As soon as possible Additional Instructions: Labs unremarkable. Ultrasound your gallbladder shows no gallstones or signs of gallbladder disease. You need to follow-up you may need a HIDA scan for further evaluation of your gallbladder. Tylenol Motrin for pain. Zofran as needed for nausea. Return to ER if feeling worse, increasing pain or fever. What to do if you have Problems For any increased pain, shortness of breath, bleeding, nausea or vomiting, chest pain, or any unexpected problems, contact your Primary Care Provider. Call [facility] ([phone]) or report to the closest Emergency Room. Call 911 if necessary. 10/26/17 0035 <Electronically signed by Nikunj Ferro MD> Date Nikunj Ferro MD Cosigner Signature (If Indicated): Date CC: No Primary Care Physician CBC W/DIFF, AUTOMATED Collected: 10/25/2017 Status: F Source: [place] 10:35 PM [facility] REPOSITORY TYPE CODE TESTS RESULT OUT OF RANGE REFERENCE UNITS LAB L100.1000 4.4-11.0 K/mm3 High WBC 13.9 LAB L100.1200 4.2-5.4 M/mm3 Normal RBC 4.30 LAB L100.1300 12.0-15.0 g/dl Normal HGB 12.8 LAB L100.1400 37-47 % Normal HCT 39.3 LAB L100.1500 81-99 fL Normal MCV 91.4 LAB L100.1600 27.0-32.0 pg Normal MCH 29.8 LAB L100.1700 32-36 g/gl Normal MCHC 32.6 LAB L100.1810 11.6-14.6 % Normal RDW CV 13.4 LAB L100.1820 35.1-43.9 fl High RDW SD 44.5 LAB L100.1900 150-450 K/mm3 Normal PLT 400 LAB L100.2000 6.2-12.0 fl Normal MPV 10.3 LAB L100.2100 47-70 % High NEUT% 80.4 LAB L100.2200 19-41 % Low LY% 15.6 LAB L100.2300 0-10 % Normal MONO% 3.4 LAB L100.2400 0-5 % Normal EO% 0.3 LAB L100.2500 0-1 % Normal BASO% 0.2 LAB L100.2550 0.0-0.9 % Normal IM GRAN % 0.100 Result Comment: IG% - Immature Granulocytes (promyelocytes, myelocytes and metamyelocytes) > 1% indicates that a LEFT SHIFT is Present. LAB L100.2620 2.0-7.7 X10 3/uL High Absolute Neut 11.2 LAB L100.2720 0.83-4.51 X10 3/ul Normal Absolute Lymph 2.17 Performed By: #### L100.0100 #### [facility] [address] [place], [address] BASIC METABOLIC Collected: 10/25/2017 Status: F Source: [place] PROFILE ([facility]) 10:35 PM [facility] REPOSITORY TYPE CODE TESTS RESULT OUT OF RANGE REFERENCE UNITS LAB L501.0100 74-106 mg/dL Normal GLU 92 Result Comment: Please note revised GLUCOSE reference range effective 2017. LAB L501.1000 7-18 mg/dL Normal BUN 14 LAB L501.1100 0.55-1.02 mg/dL Normal CREAT,SERUM 0.76 Result Comment: The validity of the calculated GFR AND GFRAA in patients over 70 years has not been determined. Clinical correlation is essential. LAB L501.1110 >60 mL/min Normal EST GFR 88 Result Comment: Non- GFR Calc LAB L501.1115 >60 mL/min Normal EST GFR - AA 106 Result Comment: GFR Calc LAB L501.1255 ml/min Normal Estimated CRCL 78.14 LAB L501.1300 10-20 RATIO Normal BUN/CRE 18.5 LAB L501.2200 8.5-10 mg/dL Normal .1 CA 9.1 LAB L501.5300 136-14 mmol/L Normal 5 NA 138 LAB L501.5600 3.5-5. mmol/L Normal 1 K 3.8 LAB L501.5900 98-107 mmol/L Normal CL 106 LAB L501.6100 21.0-3 mmol/L Normal 2.0 CO2 25.0 LAB L501.6200 5-15 Normal GAP 7 Performed By: #### L500.2500, L500.3400, L501.2450 #### [facility] [address] [place], [address] LIVER PROFILE Collected: 10/25/2017 Status: F Source: [place] 10:35 PM [facility] REPOSITORY TYPE CODE TESTS RESULT OUT OF RANGE REFERENCE UNITS LAB L501.1500 6.4-8.2 g/dL Normal T PROT 7.7 LAB L501.1800 3.2-5.0 g/dL Normal ALB 4.1 LAB L501.1950 2.2-4.2 g/dL Normal GLOB 3.6 LAB L501.4100 15-37 U/L Low AST 14 LAB L501.4305 45-117 U/L Normal ALK P 73 LAB L501.4405 13-56 U/L Normal ALT 17 LAB L501.4600 0.20-1.00 mg/dL Normal T BILI 0.40 LAB L501.4700 0.00-0.30 mg/dL Normal D BILI 0.12 Performed By: #### L500.2500, L500.3400, L501.2450 #### [facility] [address] [place], [address] LIPASE Collected: 10/25/2017 Status: F Source: [place] 10:35 PM [facility] REPOSITORY TYPE CODE TESTS RESULT OUT OF RANGE REFERENCE UNITS LAB L501.2450 73-393 U/L Normal LIPASE 103 Performed By: #### L500.2500, L500.3400, L501.2450 #### [facility] [address] [place], [address] GALLBLADDER Observed: 10/25/2017 Status: F Source: [place] 10:19 PM [facility] REPOSITORY [facility] Imaging Services [address] [place] [address] Gallbladder MR#: [id number] Acct: [id number] Name: TONY TREJO Rep #: [id number] : 1975 F 42 From: Rodrigo Farr MD PCP: Care Physician, No Primary Status: REG ER Study: Gallbladder Date of Exam: 10/25/17 Exam# [id number] Ordering Dr: Nikunj Ferro MD STUDY: ABDOMINAL ULTRASOUND - RIGHT UPPER QUADRANT REASON FOR VISIT: Female, 42 years old. Right upper quadrant pain. TECHNIQUE: Ultrasound evaluation of the right upper quadrant was performed with real-time and static hamlin-scale imaging. TECHNICAL QUALITY: Adequate. COMPARISON: None. FINDINGS: Liver: The liver measures 15.6 cm. There is normal echogenicity of the liver. The bile ducts are within normal limits. There is hepatic color flow. The direction of portal flow is hepatopetal. There is no demonstrated mass lesion. Gallbladder: Normal distended gallbladder. The gallbladder wall measures 2 mm. There is a negative sonographic Sinclair's sign. There is no pericholecystic fluid. There are no gallstones. Common Bile Duct (C.B.D.): The common bile duct measures 3 mm. Pancreas: Normal size of the head, body and tail of the pancreas. There is normal echogenicity of the pancreas. There is no demonstrated pancreatic mass or cyst. Right Kidney: Normal size of the right kidney. The right kidney measures 11.1 x 4.5 x 5.5 cm. Normal renal cortex. The right cortex measures 1.4 cm. There is a 1.8 cm cyst in the lower pole of the right kidney with internal echoes/septations. There are small echogenic shadows in the left kidney, the largest measures about 6 mm which could represent focal scar or nonobstructing stones. There is no right hydronephrosis. US/Gallbladder IMPRESSION: No evidence of gallstones. Small cyst in the right kidney. Questionable small nonobstructing stone in the lower pole of the right kidney without evidence of hydronephrosis. Electronically Signed: Rodrigo Farr MD at 23:17 EDT Tel , Service support , CC: No Primary Care Physician; Nikunj Ferro MD Sanitation Truck Cleaner: Signed CBC AND DIFFERENTIAL Collected: 10/25/2017 Status: F Source: [place] 12:50 PM [facility] REPOSITORY TYPE CODE TESTS RESULT OUT OF REFERENCE UNITS RANGE LAB WBC 3.70-11.00 k/uL WBC 8.57 LAB RBC 3.90-5.20 m/uL RBC 4.41 LAB HGB 11.5-15.5 g/dL Hemoglobin 13.2 LAB HCT 36.0-46.0 % Hematocrit 40.9 LAB MCV 80.0-100.0 fL MCV 92.7 LAB MCH 26.0-34.0 pG MCH 29.9 LAB MCHC 30.5-36.0 g/dL MCHC 32.3 LAB RDWCV 11.5-15.0 % RDW-CV 13.2 LAB PLTCT 150-400 k/uL Platelet High Count 437 LAB MPV 9.0-12.7 fL MPV 11.1 LAB ANEUT % Neut% 65.8 LAB AANEUT 1.45-7.50 k/uL Abs Neut 5.62 LAB ALYMP % Lymph% 24.0 LAB AALYMP 1.00-4.00 k/uL Abs Lymph 2.06 LAB AMONO % [place]% 8.4 LAB AAMONO <0.87 k/uL Abs [place] 0.72 LAB AEOS % Eosin% 1.2 LAB AAEOS <0.46 k/uL Abs Eosin 0.10 LAB ABASO % Baso% 0.6 LAB AABASO <0.11 k/uL Abs Baso 0.05 LAB AUNRBC 0 /100 WBC NRBCs 0.0 LAB ABNRBC <0.01 k/uL Absolute nRBC <0.01 LAB DTYP DTYPE Auto Diff Performed By: #### CBCDIF, CMP, LIPA #### [facility] [address] [place] [address] COMP METABOLIC PANEL Collected: 10/25/2017 Status: F Source: [place] 12:50 PM [facility] REPOSITORY TYPE CODE TESTS RESULT OUT OF REFERENCE UNITS RANGE LAB TP 6.3-8.0 g/dL Protein, Total 7.8 LAB ALB 3.9-4.9 g/dL Albumin 4.4 LAB CA 8.5-10.2 mg/dL Calcium, Total 9.4 LAB TBIL 0.2-1.3 mg/dL Bilirubin, Total 0.5 LAB ALKP 32-117 U/L Alkaline Phosphatase 69 LAB AST 13-35 U/L AST 23 LAB GLU 74-99 mg/dL Glucose 77 Result Comment: The [place] Diabetes Association (ADA) provides guidance for cutoff values for fasting glucose and random glucose. The ADA defines fasting as no caloric intake for at least 8 hours. Fas ting plasma glucose results between 100 to 125 mg/dL indicate increased risk for diabetes (prediabetes). Fasting plasma glucose results greater than or equal to 126 mg/dL meet the criteria for diagnosis of diabetes. In the absence of unequivocal hyperglycemia, results should be confirmed by repeat testing. In a patient with classic symptoms of hyperglycemia or hyperglycemic crisis, random plasma glucose results greater than or equal to 200 mg/dL meet the criteria for diagnosis of diabetes. Reference: Standards of Medical Care in Diabetes 2016, [place] Diabetes Association. Diabetes Care. 2016.39(Suppl 1). LAB BUN 7-21 mg/dL BUN 14 LAB CRET 0.58-0.96 mg/dL Creatinine 0.77 LAB NA 136-144 mmol/L Sodium 139 LAB K 3.7-5.1 mmol/L Potassium 4.3 LAB CL 97-105 mmol/L Chloride 101 LAB CO2 22-30 mmol/L CO2 24 LAB AGAP 9-18 mmol/L Anion Gap 14 LAB ALT 7-38 U/L ALT 13 LAB GFRAA eGFR- Amer. >60 LAB GFRNAA . eGFR-All Other Races >60 Result Comment: eGFR (Estimated GFR) Units of measure: mL/min/1.73 meters squared eGFR is derived from the reexpressed MDRD Study equation using the following parameters: serum creatinine, age, gender and race. The creatinine assay has been calibrated to be traceable to IDMS. An eGFR <60 mL/min/1.73m2 for >3 months is consistent with chronic kidney disease. Refer to KDOQI guidelines for clinical interpretation. In patients with unstable renal function, e.g. those with acute kidney injury, the eGFR may not accurately reflect actual GFR. Performed By: #### CBCDIF, CMP, LIPA #### [facility] [address] [place], [place] [address] LIPASE Collected: 10/25/2017 Status: F Source: [place] 12:50 PM [facility] REPOSITORY TYPE CODE TESTS RESULT OUT OF REFERENCE UNITS RANGE LAB LIPA 16-61 U/L Lipase 26 Performed By: #### CBCDIF, CMP, LIPA #### [facility] [address] [place], [place] [address] PROGRESS Observed: 10/25/2017 Status: COMPLETED Source: [place] 12:24 PM [facility] REPOSITORY HNO ID: [id number] Author: Mana Reis) Eduardo Service: (none) Author Type: Physician Hot Metal Charger Type: Progress Notes Filed: 10/25/2017 1:30 PM Note Text: Subjective HPI Pt presents with vomiting and diarrhea for 10 days off and on. She has between 1-3 BM a day. No blood in stool. She gets nauseated especially at work. No history of pancreatitis, no alcohol abuse, she is not diabetic. 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 No other abdominal surgeries. Last night her pain had worsened, but is a dull ache right now. Review of Systems Constitutional: Negative for chills and fever. HENT: Negative. Respiratory: Negative. Cardiovascular: Negative. Gastrointestinal: Positive for abdominal pain, diarrhea, nausea and vomiting. Negative for blood in stool, constipation and melena. Genitourinary: Negative. Musculoskeletal: Negative. Skin: Negative. All other systems reviewed and are negative. Objective Physical Exam Constitutional: She is oriented to person, place, and time and well-developed, well-nourished, and in no distress. HENT: Head: Normocephalic and atraumatic. Neck: Normal range of motion. Neck supple. Cardiovascular: Normal rate, regular rhythm and normal heart sounds. Pulmonary/Chest: Effort normal and breath sounds normal. Abdominal: Soft. Abdomen is soft and non distended. No tenderness to palpation, negative murphys sign. No RLQ pain on palpation. Bowel sounds normal. Neurological: She is alert and oriented to person, place, and time. Skin: Skin is warm and dry. Psychiatric: Affect and judgment normal. Nursing note and vitals reviewed. ASSESSMENT/PLAN: 1. Right upper quadrant abdominal pain - ICD9: 789.01, ICD10: R10.11 (primary diagnosis) - Labs of CBC with Diff, CMP and Lipase - CBC + DIFF - COMP METABOLIC PANEL - LIPASE BLD - Pt will be coming to Dr. solis's open access day tomorrow to follow up on labs. Her abdomen is benign here on palpation, she does not appear dehydrated. Discussed with patient if her pain becomes worse or she spikes a fever in the meantime she needs to go to the ED. Low fat diet encouraged. 2. Diarrhea, unspecified type - ICD9: 787.91, ICD10: R19.7 3. Nausea and vomiting, intractability of vomiting not specified, unspecified vomiting type - ICD9: 787.01, ICD10: R11.2 Mana Jain PA-C CNOV Observed: 10/25/2017 Status: COMPLETED Source: [place] 12:15 PM [facility] REPOSITORY Office Visit (WSTR) TONY TREJO ([id number]) 1975 F Date Time Provider Department 10/25/17 12:15 PM MANA JAIN) [facility] During your visit today, we recorded the following information about you: Temperature Pulse Respiration Blood pressure 98.8 degrees 74/minute 16/minute 96/64 Weight Last Period 54.9 kg 10/04/17 Mana Jain PA-C 10/25/2017 1:30 PM Signed Subjective HPI Pt presents with vomiting and diarrhea for 10 days off and on. She has between 1-3 BM a day. No blood in stool. She gets nauseated especially at work. No history of pancreatitis, no alcohol abuse, she is not diabetic. 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 No other abdominal surgeries. Last night her pain had worsened, but is a dull ache right now. Review of Systems Constitutional: Negative for chills and fever. HENT: Negative. Respiratory: Negative. Cardiovascular: Negative. Gastrointestinal: Positive for abdominal pain, diarrhea, nausea and vomiting. Negative for blood in stool, constipation and melena. Genitourinary: Negative. Musculoskeletal: Negative. Skin: Negative. All other systems reviewed and are negative. Objective Physical Exam Constitutional: She is oriented to person, place, and time and well-developed, well-nourished, and in no distress. HENT: Head: Normocephalic and atraumatic. Neck: Normal range of motion. Neck supple. Cardiovascular: Normal rate, regular rhythm and normal heart sounds. Pulmonary/Chest: Effort normal and breath sounds normal. Abdominal: Soft. Abdomen is soft and non distended. No tenderness to palpation, negative murphys sign. No RLQ pain on palpation. Bowel sounds normal. Neurological: She is alert and oriented to person, place, and time. Skin: Skin is warm and dry. Psychiatric: Affect and judgment normal. Nursing note and vitals reviewed. ASSESSMENT/PLAN: 1. Right upper quadrant abdominal pain - ICD9: 789.01, ICD10: R10.11 (primary diagnosis) - Labs of CBC with Diff, CMP and Lipase - CBC + DIFF - COMP METABOLIC PANEL - LIPASE BLD - Pt will be coming to Dr. solis's open access day tomorrow to follow up on labs. Her abdomen is benign here on palpation, she does not appear dehydrated. Discussed with patient if her pain becomes worse or she spikes a fever in the meantime she needs to go to the ED. Low fat diet encouraged. 2. Diarrhea, unspecified type - ICD9: 787.91, ICD10: R19.7 3. Nausea and vomiting, intractability of vomiting not specified, unspecified vomiting type - ICD9: 787.01, ICD10: R11.2 Mana Jain PA-C Referring Provider: SELF [200] Allergies As of Date: 10/25/2017 Noted Allergy Reaction TORADOL (KETOROLAC) 07/18/2007 16 - Unknown Date Reviewed: 10/25/2017 Reviewed by: Ene Salazar Ma - Fully Assessed Reason for Visit: GI Upset [1308] Cmt: right side upper abdominal pain, vomiting and diarrhea x 10 days off and on Primary Visit Diagnosis:Right upper quadrant abdominal pain [R10.11] Other Visit Diagnoses:Diarrhea, unspecified type [R19.7] Nausea and vomiting, intractability of vomiting not specified, unspecified vomiting type [R11.2] Order(s):CBC + DIFF [SQCBCDIF] Order #: [id number] FUTURE COMP METABOLIC PANEL [SQCMP] Order #: [id number] FUTURE LIPASE BLD [SQLIPA] Order #: [id number] FUTURE ondansetron orally disintegrating (ZOFRAN ODT) 4 mg disintegrating tabletTake 1 tablet by mouth every 8 hours as needed.Disp: 12 tabletRfl: 0 dicyclomine (BENTYL) 20 mg tabletTake 1 tablet by mouth every 6 hours.Disp: 12 tabletRfl: 0 Prescriptions as of 10/25/2017 Sig: ONDANSETRON 4 MG DISINTEGRATI* Take 1 tablet by mouth every * DICYCLOMINE 20 MG TABLET Take 1 tablet by mouth every * CITALOPRAM 20 MG TABLET Take 1 tablet by mouth once d* Problem List As Of Date 10/25/2017 Noted Resolved PMH - PAST MEDICAL HISTORY OF More... CALCULUS OF URETER [N20.1] INVALID FOR* Prescriptions ordered this encounter Disp Refills Start End ONDANSETRON 4 MG DISINTEGRATING TABL* 12 t* 0 10/25/2017 Route: ORAL Sig: Take 1 tablet by mouth every 8 hours as needed. DICYCLOMINE 20 MG TABLET 12 t* 0 10/25/2017 Route: ORAL Sig: Take 1 tablet by mouth every 6 hours. Encounter Status:Closed by MANA JAIN PA-C on 10/25/17 ALLERGIES ALLERGIES DATE TYPE / CODE NAME / CODE REACTION SEVERITY SOURCE 05/30/2018 Drug ketorolac/[id number] Unknown Unknown [facility] Allergy/416 4812(RXNORM) Hospital 511315(SNOM Repository ED CT) 07/18/2007 DRUG KETOROLAC UNKNOWN [facility] INGREDI/[facility] 069562(SNOM Repository ED CT) ENCOUNTERS ENCOUNTERS ADMIT/DISCHARGE ACCOUNT ADMITTING ENCOUNTER LOCATION SOURCE NUMBER CLASS 06/13/2018/06/13/20 [id number] Ambulatory BMSBuilding:B [place] [facility] Repository 06/13/2018/06/13/20 [id number] Ambulatory [place] [facility] ing:ENRoom: Repository AC12 05/30/2018/05/30/20 [id number] Ambulatory BMSBuilding:B [place] 18 [facility] Repository 03/21/2018 [id number] Ambulatory [facility] ing:MFPLAB Repository 11/22/2017 [id number] Ambulatory [facility] ing:MFPLAB Repository 11/01/2017 [id number] Ambulatory [facility] ing:NM Repository 10/25/2017/10/26/19 [id number] Emergency [address] ing:ED Repository 10/25/2017 [id number] Ambulatory [facility] Repository 10/25/2017/10/27/19 [id number] Ambulatory [address] Repository PAYERS PAYERS ENCOUNTER GUARANTOR PAYER SUBSCRIBER SOURCE 06/13/2018 TONY Art Primary ANDREE M Bombay [id number] [place] Insurance:ANTHEMPolic BISHOPDOB: [facility] Number: [id number] 38345Emg: 330 [id number] Repository [phone] () Date:6125-01-48DG [address] [place] [address] 21769QA: 06/13/2018 Secondary NOT GIVENUNK Sohail Insurance:SELF PAY [facility] Number: Effective Repository Date:2018-06-13 06/13/2018 TONY Art Primary ANDREE M Sohail [id number] [place] Insurance:ANTHEMPolic BISHOPDOB: [facility] Number: [id number] 89672Rcw: (330 [id number] Repository [phone] () Date:4082-85-58HG [id number] [place] [address] 39699RX: 06/13/2018 Secondary NOT GIVENUNK Sohail Insurance:SELF PAY [facility] Number: Effective Repository Date:2018-05-30 05/30/2018 TONY Art Primary ANDREE M Sohail [id number] [place] Insurance:ANTHEMPolic BISHOPDOB: [facility] Number: [id number] 11415Qlm: [phone]) [id number] Repository [phone] (HP) Date:7902-03-89OC [address], [place] [address]CF: 05/30/2018 Secondary NOT GIVENUNK Bombay Insurance:SELF PAY [facility] Number: Effective Repository Date:2018-05-29 03/21/2018 ANDREE M Primary ANDREE M Sohail [id number] [place] Insurance:ANTHEMPolic [place]: [id number] [address]Kks: (330) [id number] Repository [phone] () Date:5166-77-03VK [address], [place] [address]MX: 03/21/2018 Secondary NOT GIVENUNK Bombay Insurance:SELF PAY [facility] Number: Effective Repository Date:2018-03-21 11/22/2017 ANDREE M Primary ANDREE M Sohail [id number] [place] Insurance:ANTHEMPolic [place]DOB[place]: [id number] 133[address]Gor: (330) [id number] Repository [phone] () Date:3416-90-78YQ [address], [place] [address]JY: 11/22/2017 Secondary NOT GIVENUNK Bombay Insurance:SELF PAY [facility] Number: Effective Repository Date:2017-11-21 11/01/2017 ANDREE M Primary ANDREE M Sohail [id number] [place] Insurance:ANTHEMPolic [place]DOB[place]: [id number] [address]Sez: (330) [id number] Repository [phone] () Date:1070-61-54XP [address], [place] [address]UR: 11/01/2017 Secondary NOT GIVENUNK Bombay Insurance:SELF PAY [facility] Number: Effective Repository Date:2017-10-31 10/25/2017 ANDREE M Primary ANDREE M Sohail [id number] [place] Insurance:ANTHEMPolic BISHOPDOB: [facility] Number: [id number] [facility] [address]Jrf: (205) [id number] Repository [phone] () Date:7319-90-01ZJ [address], [place] [address]XP: 10/25/2017 Secondary NOT GIVENUNK Bombay Insurance:SELF PAY [facility] Effective Repository Date:2017-10-25
== END 2018-06-13 08:31 | disposition home or self-care (01) ==
LOC: EN 06:14 → AC 06:14
PROVIDERS: Family Provider Family Medicine; PCP Family Medicine; Referring Provider Surgery; Visit Provider Surgery
PROC: (CPT 43239; principal; 2018-06-13 07:10)
DX: K29.50 Unspecified chronic gastritis without bleeding (principal); K44.9 Diaphragmatic hernia without obstruction or gangrene; K22.8 Other specified diseases of esophagus; K31.89 Other diseases of stomach and duodenum; R13.10 Dysphagia, unspecified; R10.11 Right upper quadrant pain; R10.13 Epigastric pain
CPT/HCPCS: 43239; 88305; 88342; 99152; 99153; J7120

== ENCOUNTER → 2019-06-18 17:42 | Outpatient (CLI) | payer BC, SELFPAY ==
[2018-06-13 06:43] VITALS: BMI 22.1
[2019-06-23 14:50] LABS: HPV Reflexed? NOT INDICATED
== END ==
PROVIDERS: Family Provider Family Medicine; PCP Family Medicine; Referring Provider Nurse Practitioner Adult Health; Visit Provider Nurse Practitioner Adult Health
DX: Z01.419 Encounter for gynecological examination (general) (routine) without abnormal findings (principal)
CPT/HCPCS: 88175; G0145

== ENCOUNTER → 2021-05-06 09:04 | Outpatient (CLI) | payer BC, SELFPAY | PROVIDERS: PCP Family Medicine | DX: N39.0 Urinary tract infection, site not specified (principal) | CPT/HCPCS: 87086; 87088 ==

== ENCOUNTER 2021-05-06 17:31 | Emergency (ER) | payer BC, SELFPAY ==
[2021-05-06 17:32] VITALS: BP 160/91; PULSE 93; RESP 12; TEMP 36.7; O2SAT 100; BMI 21.9
--- NOTE | 2021-05-06 18:02 | EX.ED.GENINJ ---
HPI History of Present Illness Chief Complaint: Laceration Informant: patient Narrative Narrative: 46-year-old female presents to the emergency department with a lip laceration. Patient states that she was put on antibiotic (nitrofurantoin) for urinary tract infection and started that yesterday. When she woke today she felt very nauseous and weak and off balance. She fell trying to get back into bed sustaining a lip laceration. States that she called her doctor's office a couple times and they recommended that she go to urgent care and they called in a new antibiotic (Bactrim). Urgent care advised her to come to emergency. [facility] Medical History Anxiety Dysphagia Epigastric pain GERD (gastroesophageal reflux disease) Kidney calculi Home Medications omeprazole 40 mg capsule,delayed release 40 mg PO DAILY 05/30/18 [History Last Taken Unknown] Allergy/AdvReac Type Severity Reaction Status Date / Time ketorolac [From Toradol] Allergy Unknown Verified 05/06/21 17:32 Family History Father Heart disease Myocardial infarction Mother Breast cancer Rheumatoid arthritis Brother CVA (cerebral vascular accident) Surgical History History of dilatation and curettage History of parathyroidectomy History of tonsillectomy History of wisdom tooth extraction Social History (Updated 05/06/21 @ 18:[address] Bladimir Valentine DO) Smoking Status: Never smoker substance use type: does not use ROS ROS ED Constitutional Constitutional ED: Denies chills, fever(s) or weight loss Eyes Eyes: Denies change in vision or diplopia ENT ENT ED: Denies ear pain, rhinorrhea or sore throat Cardiovascular Cardiovascular: Denies chest pain, orthopnea, palpitations or racing heartbeat Respiratory/Chest Respiratory/Chest: Denies cough, dyspnea or orthopnea Gastrointestinal Gastrointestinal: Denies abdominal pain, diarrhea, nausea or vomiting Genitourinary Genitourinary ED: Denies dysuria, hematuria or urinary frequency Musculoskeletal Musculoskeletal: Denies arthralgias or myalgias Integumentary Denies abscess or rash Neurologic Neurologic: Denies headache(s) or weakness Psychiatric Psychiatric: Denies anxiety, depression, suicidal ideation or suicidal thoughts Endocrine Endocrinology: Denies polydipsia, polyphagia or polyuria Allergic/Immunologic Allergic/Immunologic ED: Denies mouth swelling, tongue swelling or urticaria EXAM Physical Exam Const Vital Signs: 05/06/21 17:32 Temperature 98.1 F Temperature Source Temporal Pulse Rate 93 Respiratory Rate 12 Blood Pressure 160/91 H Blood Pressure Mean 114 Pulse Ox 100 Oxygen Delivery Method Room Air Positive well nourished and well developed General Appearance ED: well developed HEENT Reports normocephalic, head/scalp atraumatic, TM's clear and moist mucous membranes HEENT Narrative: There is 1/2 cm vertical laceration of the lower left lip that does cross vermilion border. There is inner lip contusion but no gaping laceration. There does not appear to be any dental trauma. No malocclusion of the jaw. trauma Tympanic Membrane ED: Yes TM's clear Eyes PERRL and EOMs intact bilaterally Neck full ROM, no lymphadenopathy, supple and no JVD Resp normal respiratory effort and clear to auscultation bilaterally Cardio regular rate, regular rhythm and no murmurs GI normal to inspection, nondistended, normoactive bowel sounds and non-tender Palpation: soft Back/Spine no CVA tenderness and normal ROM Extremity normal to inspection General Extremety ED: Negative for edema General Extremity: Negative for edema Neuro oriented x3 and CN's II-XII intact bilaterally Sensorium / Orientation: alert Motor Exam: strength 5/5 throughout Psych mental status grossly normal Mood & Affect: Negative for depressed or tearful Skin no rashes or lesions noted and no wounds MDM MDM MDM Narrative Medical decision making narrative: Wound was locally anesthetized using 1% lidocaine. A single simple interrupted 6-0 Ethilon suture was placed as a stay stitch on the vermilion border. A second 6-0 Ethilon suture was placed onto the skin. Noted place her on penicillin for prophylaxis since it is a through and through laceration Discharge Plan Triage Chief Complaint: Laceration ED Provider: Bladimir Valentine Dx/Rx/DC Orders Clinical Impression: Laceration of lip Instructions: ED Laceration, Lip or Mouth Prescriptions: No Action omeprazole 40 mg capsule,delayed release(DR/EC) 40 mg PO DAILY RF: 0 Primary Care Provider: Nakul Reynolds Referrals: Nakul Reynolds MD [Primary Care Provider] - 5 Days for suture removal Disposition Disposition: Home, Self Care
[2021-05-06] MEDS: Lidocaine 1% (20 ml mdv) 20 ML Vial INFILT (18:10)
== END 2021-05-06 18:29 | disposition home or self-care (01) ==
PROVIDERS: Emergency Provider Emergency Medicine; PCP Family Medicine
DX: S01.511A Laceration without foreign body of lip, initial encounter (principal); W06.XXXA Fall from bed, initial encounter; Y93.9 Activity, unspecified; Y92.89 Other specified places as the place of occurrence of the external cause; Y99.8 Other external cause status; N39.0 Urinary tract infection, site not specified; K21.9 Gastro-esophageal reflux disease without esophagitis; Z79.1 Long term (current) use of non-steroidal anti-inflammatories (NSAID)
CPT/HCPCS: 12011; 99282

== ENCOUNTER → 2021-11-11 | Outpatient (CLI) | payer BC, SELFPAY ==
[2021-11-11 15:23] LABS: Mean Corp Hgb Conc 32.5 g/dL (32-36); Mean Corpuscular Volume 92.2 fL (81-99); Mean Platelet Vol. 11.4 fl (6.2-12.0); Platelet Count 431 K/mm3 (150-450); RBC Distribution Width CV 13.1 % (11.6-14.6); RBC Distribution Width SD 44.6 fl (35.1-43.9); Red Blood Count 4.34 M/mm3 (4.2-5.4); White Blood Count 8.4 K/mm3 (4.4-11.0)
[2021-11-11 15:45] LABS: ALB/GLOB Ratio 1.2 RATIO (0.9-2.4); AST(SGOT) 20 U/L (15-37); Alanine Aminotransfer ALT/SGPT 27 U/L (13-56); Albumin, Serum 4.2 g/dL (3.2-5.0); Alkaline Phosphatase 59 U/L (45-117); Anion Gap 7 (5-15); BUN 24 mg/dL (7-18); BUN/Creat Ratio 28.7 RATIO (10-20); Calcium,Total 9.4 mg/dL (8.5-10.1); Chloride 105 mmol/L (98-107); Creatinine, Serum 0.84 mg/dL (0.55-1.02); EST Glomerular Filtration Rate 77 mL/min (>60); Est Glom Filt Rate - Afr Amer 93 mL/min (>60); Globulin 3.4 g/dL (2.2-4.2); Glucose 102 mg/dL (74-106); Protein, Total 7.6 g/dL (6.4-8.2); Rheumatoid Factor < 10.0 IU/mL (<15); Sodium Level 136 mmol/L (136-145)
[2021-11-14 16:35] LABS: ANTINUCLEAR ANTIBODIES DIRECT Negative (Negative)
[2021-11-15 09:35] LABS: CCP IgG Antibodies 5 units (0-19)
== END | disposition home or self-care (01) ==
LOC: MTLAB 12:35
PROVIDERS: PCP Family Medicine; Referring Provider Podiatrist; Visit Provider Podiatrist
DX: M20.21 Hallux rigidus, right foot (principal)
CPT/HCPCS: 36415; 80053; 85027; 86038; 86200; 86431

== ENCOUNTER → 2021-12-22 | Outpatient (CLI) | payer BC, SELFPAY ==
[2021-12-22 15:22] LABS: Absolute Neutrophil Count 4.5 X10^3/uL (2.0-7.7); Basophil# 0.06 X10^3/uL; Basophil% 0.8 % (0-1); Eosinophil# 0.06 X10^3/uL; Eosinophils% 0.8 % (0-5); Hematocrit 37.9 % (37-47); Hemoglobin 12.3 g/dL (12.0-15.0); Lymphocyte % 30.3 % (19-41); Mean Corp Hgb Conc 32.5 g/dL (32-36); Mean Corpuscular Hgb 29.8 pg (27.0-32.0); Mean Corpuscular Volume 91.8 fL (81-99); Mean Platelet Vol. 11.3 fl (6.2-12.0); Monocyte% 7.9 % (0-10); NRBC Flagged by Analyzer 0 % (0-5); Neutrophil # 4.54 X10^3/uL (2.7-7.7); Neutrophil % 59.8 % (47-70); Platelet Count 380 K/mm3 (150-450); RBC Distribution Width CV 13.7 % (11.6-14.6); RBC Distribution Width SD 46.1 fl (35.1-43.9); Red Blood Count 4.13 M/mm3 (4.2-5.4); White Blood Count 7.6 K/mm3 (4.4-11.0)
[2021-12-22 15:39] LABS: Anion Gap 7 (5-15); BUN 22 mg/dL (7-18); BUN/Creat Ratio 27.4 RATIO (10-20); Calcium,Total 9.3 mg/dL (8.5-10.1); Chloride 106 mmol/L (98-107); EST Glomerular Filtration Rate 81 mL/min (>60); Est Glom Filt Rate - Afr Amer 98 mL/min (>60); Glucose 96 mg/dL (74-106); Potassium 4.3 mmol/L (3.5-5.1); Sodium Level 137 mmol/L (136-145)
== END | disposition home or self-care (01) ==
PROVIDERS: PCP Family Medicine; Referring Provider Family Medicine; Visit Provider Family Medicine
DX: Z01.818 Encounter for other preprocedural examination (principal)
CPT/HCPCS: 36415; 80048; 85025

== ENCOUNTER 2021-12-30 11:28 | Day surgery (SDC) | payer BC, SELFPAY ==
[2021-12-30] VITALS (8 sets, daily range): BP systolic 100–116; BP diastolic 62–81; PULSE 70–80; RESP 16–18; TEMP 36.9–37.3; O2SAT 95–100; BMI 21.9
[2021-12-30 12:06] LABS: Internal QC Validated? YES +Cl - CLEAR BKGD; Pregnancy, Urine Negative Negative
[2021-12-30] MEDS: 0.9% Normal Saline 1,000 ML 100 ML IV ×2 (12:15→14:46)
--- NOTE | 2021-12-30 13:00 | RAD_ITS ---
STUDY: INTRAOPERATIVE FLUOROSCOPY TECHNIQUE: The examination was performed with referring physician in attendance. Under fluoroscopic observation, fluoroscopic images were obtained. Radiologist was not present for the study. Radiologist did not perform the procedure. This dictation is for documentation of the radiation dosage only. There is no interpretation of the images. TOTAL NUMBER OF IMAGES: 1 COMPARISON: None RADIATION DOSE: .316 mGy FLUOROSCOPY TIME: 51 seconds REASON FOR EXAM: FOOT 1ST MPJ ARTHRODESIS FUSION in OR Female, 46 years old. FINDINGS: Anterior fusion plate at first metatarsophalangeal joint. RAD/Foot 2 Views IMPRESSION: Fluoroscopic assistance images were obtained. Dictation for documentation purposes only. Electronically Signed: Alexis Hays MD at 17:01 EDT ,
[2021-12-30] MEDS: Cefazolin 2 GM in 0.9% Normal Saline 100 ML IV (13:11)
[2021-12-30] MEDS: Bupivacaine Mpf 0.5% 30 ML VIAL (15:20)
--- NOTE | 2021-12-30 15:53 | PCM.OPRPT ---
Problems Associated Problem List Diagnoses (1) Hallux rigidus of right foot: Report of Operation Date of Procedure: 12/30/21 Pre-Operative Diagnosis: Hallux Rigidus, Right foot Post-Operative Diagnosis: Hallux Rigidus, Right foot Surgery/Procedure Performed:: Right first MPJ arthrodesis Description of Surgical Findings:: Patient has been dealing with chronic right big toe pain with limited range of motion. She attempted conservative treatment which does proceed with operative management. Patient was brought back to the operating room placed comfortably in the supine position on the operating room tissue table with all osseous prominences offloaded prevent any compression neuropraxia. Anesthesia induced the patient under general anesthesia. Right lower extremity was positioned with out any external rotation for optimal alignment. Well-padded calf tourniquet was applied to the right lower extremity. Aseptic Olson block was performed to right first MPJ using 10 cc half percent Marcaine plain another 10 cc would be injected prior to dressing application for a total of 20 cc half percent Marcaine plain. Right lower extremity scrubbed prepped draped using typical aseptic manner. Right lower extremity was elevated exsanguinated Tourniquet was inflated to 250 mmHg. Linear dorsal incision at the level of first MPJ was marked out just medial to the extensor hallucis longus tendon. This incision was made with a 15 blade through the epidermis dermis into subcutaneous tissue blunt dissection was taken down the level deep fascia and first MPJ capsule any bleeders were identified cauterized at this time neurovascular structures were protected with blunt retraction. A linear capsulotomy was performed and the capsule was removed from the dorsal aspect of the first MPJ including the base of the first proximal phalanx and the first metatarsal head dorsally medially laterally. Once adequate exposure of the joint was noted. The joint was prepped using Arthrex reamers on hand to the first metatarsal head and proximal phalangeal base. All nonviable viable interpositional cartilage was removed. Sockets were made to the dorsal and medial aspect of the first MPJ removing any osteophytic first met head spur as well as proximal phalangeal spurring specifically dorsally and medially on both sides of the joint. Incision and joint were flushed with copious amounts of normal sterile saline. Subchondral drilling was performed with 2 oh drill bit to the first metatarsal head and proximal phalangeal base. The joint was then pinned with a K wire and a rectus alignment was confirmed clinically and fluoroscopically with AP and lateral imaging. Arthrex max force compression plate was applied to the dorsal aspect of the joint. This was performed with locking the distal portion of the plate down initially and then using the compression mechanism to compress proximal to the joint there is no to be adequate apposition of the first metatarsal head and proximal phalangeal joint base with maintained alignment. Was fixated in this position proximally and distally using manufactures guidelines with combination of 6x3.0mm cortical and locking screws. Tourniquet was let down prior to incision closure tourniquet time was noted to be less than 90 minutes. Final fluoroscopic images and clinical evaluation noted. The great toe was noted to be in approximately 10 to 15 degrees of dorsiflexion with rectus alignment with regards to frontal and transverse planes. Incisional closure was performed after flushing the incision with copious amounts of normal sterile saline. Capsular closure performed with a running interlocking 2-0 Vicryl subcutaneous closure with running interrupted buried 2-0 Vicryl. Skin closure with running intradermal subcuticular 4-0 Monocryl. Steri-Strips applied the dorsal medial aspect of the joint along with Betadine and Adaptic. Additional 10 cc to make a total of 20 cc half percent Marcaine plain injected in a Olson block fashion. Dry sterile dressing and well-padded posterior splint applied to right lower extremity patient transferred to PACU vital signs stable vascular status intact to all digits for further monitoring prior to discharge expected condition. No pathologic specimens No complications Stable first metatarsal phalangeal joint with rectus alignment after reduction and plate fixation. Intraoperatively the first metatarsal head and proximal phalangeal base were noted to be denuded approximately 80% of the articular cartilage with dorsal osteophyte formation along the proximal phalangeal base as well as the dorsal first metatarsal head and along the medial aspect of the joint as well. There is noted to be capsular invagination within the joint dorsally as well. Surgeon: Bladimir Raines industrial technology teacher: None ([facility] podiatry resident) Type of Anesthesia: General/Regional Estimated Blood Loss (mL): 10-15cc Description of Procedure: detailed above Grafts/Implants Used: arthrex max force plate with 6x3mm locking and non-locking Admit VTE Documentation VTE Present on Admission: Yes VTE Mechan Device Prophylaxis: SCD's VTE Pharm Prophylaxis ordered?: No Reason prophylaxis not ordered:: Treatment Not Indicated
== END 2021-12-30 18:16 | disposition home or self-care (01) ==
LOC: SDC 11:32 → AC 11:32
PROVIDERS: Anesthesiology; PCP Family Medicine; Referring Provider Podiatrist; Visit Provider Podiatrist
PROC: (CPT 28750; principal; 2021-12-30 12:45)
DX: M20.21 Hallux rigidus, right foot (principal); K21.9 Gastro-esophageal reflux disease without esophagitis
CPT/HCPCS: 28750; 01480; 73620; 76000; 81025; C1713; J7030; J2405

== ENCOUNTER → 2022-05-18 | Outpatient (CLI) | payer BC, SELFPAY ==
--- NOTE | 2022-05-18 14:45 | CT_ITS ---
EXAM: CT RIGHT LOWER EXTREMITY WITHOUT INTRAVENOUS CONTRAST CLINICAL INDICATION: PAIN TECHNIQUE: Helically acquired images were obtained of the right lower extremity without intravenous contrast. 2-D reformats were performed by the technologist. CTDIvol = ( 15.35 ) mGy, DLP = ( 376.79 ) mGycm This CT exam was performed using one or more of the following dose reduction techniques: automated exposure control, adjustment of the mA and/or kV according to patient size, and/or use of iterative reconstruction technique. This report was created using NanoSight report mobli technology. COMPARISON: December 30, 2021 FINDINGS: See Impression. CT/Extremity Lower without Contra IMPRESSION: 1. Dorsal plate and multiscrew fixation across the first metatarsophalangeal joint. No hardware complications. No residual fracture lucencies. 2. No other evidence for acute or healing fracture or malalignment. 3. No unusual lytic or sclerotic lesions of bone. 4. No significant arthritic changes. Electronically Signed: Laith Maurice MD at 21:37 EST ,
== END | disposition home or self-care (01) ==
LOC: CT 14:44
PROVIDERS: PCP Family Medicine; Referring Provider Podiatrist; Visit Provider Podiatrist
DX: M79.671 Pain in right foot (principal)
CPT/HCPCS: 73700

== ENCOUNTER → 2022-06-20 | Outpatient (CLI) | payer BC, SELFPAY ==
[2022-06-20 17:54] LABS: Absolute Lymphocyte Count 3.16 X10^3/uL (0.83-4.51); Absolute Neutrophil Count 8.2 X10^3/uL (2.0-7.7); Basophil# 0.06 X10^3/uL; Basophil% 0.5 % (0-1); Eosinophil# 0.06 X10^3/uL; Eosinophils% 0.5 % (0-5); Hematocrit 39.6 % (37-47); Hemoglobin 13.3 g/dL (12.0-15.0); Lymphocyte # 3.16 X10^3/ul (0.83-4.51); Lymphocyte % 25.9 % (19-41); Mean Corp Hgb Conc 33.6 g/dL (32-36); Mean Corpuscular Hgb 30.4 pg (27.0-32.0); Mean Corpuscular Volume 90.6 fL (81-99); Mean Platelet Vol. 11.1 fl (6.2-12.0); Monocyte# 0.71 X10^3/uL; Monocyte% 5.8 % (0-10); NRBC Flagged by Analyzer 0 % (0-5); Neutrophil % 67.1 % (47-70); Platelet Count 411 K/mm3 (150-450); RBC Distribution Width CV 13.2 % (11.6-14.6); RBC Distribution Width SD 44.9 fl (35.1-43.9); Red Blood Count 4.37 M/mm3 (4.2-5.4); White Blood Count 12.2 K/mm3 (4.4-11.0)
[2022-06-20 18:53] LABS: ALB/GLOB Ratio 1.3 RATIO (0.9-2.4); AST(SGOT) 10 U/L (15-37); Alanine Aminotransfer ALT/SGPT 22 U/L (13-56); Albumin, Serum 4.3 g/dL (3.2-5.0); Alkaline Phosphatase 64 U/L (45-117); Anion Gap 10 (5-15); BUN 22 mg/dL (7-18); BUN/Creat Ratio 27.5 RATIO (10-20); Calcium,Total 9.6 mg/dL (8.5-10.1); Chloride 104 mmol/L (98-107); EST Glomerular Filtration Rate 81 mL/min (>60); Est Glom Filt Rate - Afr Amer 98 mL/min (>60); Globulin 3.4 g/dL (2.2-4.2); Glucose 82 mg/dL (74-106); Potassium 3.8 mmol/L (3.5-5.1); Protein, Total 7.7 g/dL (6.4-8.2); Sodium Level 137 mmol/L (136-145)
== END | disposition home or self-care (01) ==
LOC: MFPLAB 16:17
PROVIDERS: PCP Family Medicine; Referring Provider Family Medicine; Visit Provider Family Medicine
DX: K21.9 Gastro-esophageal reflux disease without esophagitis (principal)
CPT/HCPCS: 36415; 80053; 85025

== ENCOUNTER 2022-06-23 10:00 | Outpatient (RCR) | payer BC, SELFPAY ==
--- NOTE | 2022-03-28 11:30 | HP.PTEVAL_ITS ---
Patient's Visit Information TONY ZAMAN is a 47 year old F referred to Physical Therapy by Dr. Bladimir Raines DPM with a diagnosis of Hallux Rigidus Right Foot. Date of Evaluation: 03/28/22 Physical Therapist: Isabella Feldman DPT - Visit Plan Frequency: 3x /Week Duration: 4 Weeks Plan: 12/30/21: Hallux Rigidus Right Foot- Focus on LE weight shifting, gait and functional mobility. HEP Given: Weight shift, HR/TR, Gastroc Stretch, Towel Scrunch - Subjective Patient reports right foot surgery 12/30/[address] Raines- After surgery she was NWB for a month and has only been walking about 2 weeks without the boot. She is pretty sore today- she is only able to get on her Birkenstocks. At home she is barefoot. Pain is located along the top of the foot and along the medial border of the 1st ray and the medial ball of the foot. Describes the pain as sharp if she is on it to long but normally pretty achy. She has N/T in the toe and gives out on her. She has decrease balance but no falls. No radiating pain. Worst: 7/10 Agg: shoes, being on it for any length of time. Best: 0/10 Eases: rest, sticks her foot in the pool (but its closed now). Sleep: disturbed- last week a few times- hard to get comfortable- when she gets off of it it throbs. She is normally pretty active. 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 Last apt had x-rays- everything looked good. It's healed and the bone is fused. PMHx: none Meds: omperozol - Objective Posture: Fair throughout. Gait: antalgic- decrease stance on right LE- no heel/toe pattern. HR/TR: able seated but reports pain. SLS: weight shift but unable to SLS and supinates with full weight bearing. Observation: incision well healed. ROM: Ankle: WFL- great toes has limited motion due to the surgical intervention. Strength: Ankle: 4+/5, Knee: 4+/5, Hip: 4/5 Core: fair- can toe crunch with discomfort. Flex: HS: moderate, Gastroc: moderate Solues: moderate. palpation: tender along greater toe, medial border of the great toe and the plantar surface under the foot. - Balance/Special Test Scores Lower Extremity Functional Score: 33 - Goals Goal 1:: Patient will be I with HEP and progression Goal Time Frame: 4-6 Weeks Goal 2:: Patient will ambulate >300 feet with a normalized gait pattern Goal Time Frame: 4-6 Weeks Goal 3:: Patient will SLS for 15 seconds without LOB Goal Time Frame: 4-6 Weeks Goal 4:: Patient will report 80% improvement Goal Time Frame: 4-6 Weeks - Rehabilitation Potential Physical Therapy Diagnosis: Patient presents s/p surgery 12/30/21- she has hypomobility- she has decreased LE ROM, strength and muscular endurance leading to abnormal gait and increased pain with ADL's Rehabilitation Potential: Good - Anticipated Interventions Patient/Client Instruction: Educate patient on: Benefits of Fitness Program Therapeutic Exercise to Include: Strength training, Endurance training, Balance training, Coordination, Agility training, Body mechanics, Postural training, Flexibilty training, Gait and locomotor training, Neuromotor development, Passive ROM, Active ROM, Dynamic Lumbar Stabilization, Scapular Strength/Stabilization For the Purpose of:: To improve muscle performance and motor function TENS: Yes Cryotherapy (ice pack, ice massage): Yes Thermo therapy (hot pack): Yes Ultrasound (thermal/non thermal): No Thank you for the opportunity to evaluate your patient. For Medicare and Medicare HMO plans, please review the plan of care and approve it. It will need to be FAXED BACK to us at [phone] for Medicare purposes. For Medicare only, by signing this I certify the plan of care. Please let me know if there are questions or concerns regarding this plan of care. Physician Signature: Date:
--- NOTE | 2022-04-25 10:59 | HP.PTREVAL ---
Dr. Bladimir Raines, DPM, It has been my pleasure to treat TONY ZAMAN over the last 9 visits for Hallux Rigidus Right Foot. Please see the progress note below for an update on the physical therapy plan of care! Subjective: Patient reports that she feels that its getting better. She had an injection last time she was at the MD- now she is able to do more at PT. She is wearing her shoes but can only handle for about an hour and a half then she has to take off them- she can rest and put them back on after about 30-60 minutes. She is not back to work due to not wearing her shoe. She goes back to the [facility] tomorrow. Objective/Function: Shoe On: Gait: antalgic- decreased stance on right foot poor heel/toe. HR/TR: able with UE A. SLS: 10 sec. Shoe off: Gait: same as above. HR/TR: able with increased pain. SLS: 5 sec then LOB and reports pain. ROM: WFL in all planes. Strength: 4/5 throughout with discomfort Plan Plan: 04/25/22 Continue POC 2-3x a week for 4 weeks- balance, gait and decreased pain. 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 12/30/21: Hallux Rigidus Right Foot- Focus on LE weight shifting, gait and functional mobility. HEP Given: Weight shift, HR/TR, Gastroc Stretch, Towel Scrunch Balance/Gait/Functional tests - Balance/Special Test Scores Lower Extremity Functional Score: 41 Goals Goal 1:: Patient will be I with HEP and progression Goal Time Frame: 4-6 Weeks Goal 2:: Patient will ambulate >300 feet with a normalized gait pattern Goal Time Frame: 4-6 Weeks Goal 3:: Patient will SLS for 15 seconds without LOB Goal Time Frame: 4-6 Weeks Goal 4:: Patient will report 80% improvement Goal Time Frame: 4-6 Weeks Anticipated Interventions Patient/Client Instruction: Educate patient on: Benefits of Fitness Program Therapeutic Exercise to Include: Strength training, Endurance training, Balance training, Coordination, Agility training, Body mechanics, Postural training, Flexibilty training, Gait and locomotor training, Neuromotor development, Passive ROM, Active ROM, Dynamic Lumbar Stabilization, Scapular Strength/Stabilization For the Purpose of:: To improve muscle performance and motor function TENS: Yes Cryotherapy (ice pack, ice massage): Yes Thermo therapy (hot pack): Yes Ultrasound (thermal/non thermal): No Please do not hesitate to contact me at [phone] by phone or if you have questions or concerns regarding this new plan of care! Sincerely, CYDNEY KayeT
--- NOTE | 2022-05-26 10:50 | HP.PTREVAL ---
Dr. Bladimir Raines, DPM, It has been my pleasure to treat TONY ZAMAN over the last 22 visits for Hallux Rigidus Right Foot. Please see the progress note below for an update on the physical therapy plan of care! Subjective: Patient reports that she is having the hardware taken out in Jun 30. She talked to her MD and he wants her to continue PT until surgery to keep her strength. She has a scan that shows that the hardware needs to come out. She likes the pool a lot due to the decreased pain. 2 weeks ago she had an injection to help keep the inflammation down. She can wear her shoes for 5 hours or so. Objective/Function: Shoe On: Gait: antalgic- decreased stance on right foot poor heel/toe. HR/TR: able with UE A. SLS: 30 sec. ROM: WFL in all planes. Strength:5/5 throughout with discomfort Plan Plan: 05/26/22: Continue 2x a week for 4 weeks aquatic until surgery. 04/28/22: 2x a week for aquatic and 1x a week for 4 weeks. 04/25/22 Continue POC 2-3x a week for 4 weeks- balance, gait and decreased pain. 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 12/30/21: Hallux Rigidus Right Foot- Focus on LE weight shifting, gait and functional mobility. HEP Given: Weight shift, HR/TR, Gastroc Stretch, Towel Scrunch Balance/Gait/Functional tests - Balance/Special Test Scores Lower Extremity Functional Score: 44 Goals Goal 1:: Patient will be I with HEP and progression Goal Time Frame: 4-6 Weeks Goal Progress: Progressing Goal 2:: Patient will ambulate >300 feet with a normalized gait pattern Goal Time Frame: 4-6 Weeks Goal Progress: Progressing Goal 3:: Patient will SLS for 15 seconds without LOB Goal Time Frame: 4-6 Weeks Goal Progress: Goal Met Goal 4:: Patient will report 80% improvement Goal Time Frame: 4-6 Weeks Goal Progress: Progressing Anticipated Interventions Patient/Client Instruction: Educate patient on: Benefits of Fitness Program Therapeutic Exercise to Include: Strength training, Endurance training, Balance training, Coordination, Agility training, Body mechanics, Postural training, Flexibilty training, Gait and locomotor training, Neuromotor development, Passive ROM, Active ROM, Dynamic Lumbar Stabilization, Scapular Strength/Stabilization For the Purpose of:: To improve muscle performance and motor function TENS: Yes Cryotherapy (ice pack, ice massage): Yes Thermo therapy (hot pack): Yes Ultrasound (thermal/non thermal): No Please do not hesitate to contact me at [phone] by phone or if you have questions or concerns regarding this new plan of care! Sincerely, CYDNEY KayeT
--- NOTE | 2022-06-27 10:25 | HP.PTDCSUM_ITS ---
It has been my pleasure to treat TONY ZAMAN referred by Dr. Bladimir Raines DPM, with the diagnosis of Hallux Rigidus Right Foot for a total of 29 visit(s). Discharge Date: 06/23/22 Please see the following information for a summary of their discharge status. Subjective: Pt. reports overall about the same. She is still having a lot of trouble with walking secondary to pain. She is hyper sensitivity to her R foot as well. She is to have surgery in about week or so. R foot Pain Intensity (Out of 10): 4 % Improvement: 15 Objective/Function: ROM: ankle full ROM without increase in symptoms. 1set metatarsal: ext 2deg, flexion 0deg. MMT: 5/5 throughout ankle and knee 5/5 throughout. GAIT: Pt. continues to have a very antalgic pattern with her gait with attempting to limited WBing throughout forefoot. minimal to no forefoot rocker moment. Resulting in increased R knee hyper extension to accommodate. stairs: step to pattern with 1 HR to complete. No issues going, pretty painful with descending. I did educate her in desensitization activities. Pt. consents. Goal 1:: Patient will be I with HEP and progression Goal Progress: Progressing Goal 2:: Patient will ambulate >300 feet with a normalized gait pattern Goal Progress: Progressing Goal 3:: Patient will SLS for 15 seconds without LOB Goal Progress: Goal Met Goal 4:: Patient will report 80% improvement Goal Progress: Not Progressing Plan: Pt. to be DC to physician as she is having surgery. Discharge Comments: Pt. was treated for her Hallux Rigidus Right Foot. pt. was treated both on land and in pool. Pt. was still having issues with pain and li mited tolerance with walking. She is having surgery in a few weeks and will be DC back to physician at this point in time. If there are questions or concerns regarding this patient's physical therapy, please feel free to call me at [phone]. Thank you for the referral of this patient. Sincerely, Imer Lopez, DPT Balance/Gait/Functional tests - Balance/Special Test Scores Lower Extremity Functional Score: 44
== END 2022-06-23 19:00 | disposition home or self-care (01) ==
LOC: PT 10:00
PROVIDERS: PCP Family Medicine; Referring Provider Podiatrist; Visit Provider Podiatrist
DX: M20.21 Hallux rigidus, right foot (principal)
CPT/HCPCS: 97110; 97113; 97140; 97162; 97164

== ENCOUNTER 2022-06-30 09:23 | Day surgery (SDC) | payer BC, SELFPAY ==
[2022-06-30] VITALS (7 sets, daily range): BP systolic 115–131; BP diastolic 78–88; PULSE 66–70; RESP 16–18; TEMP 36.4–36.7; O2SAT 95–100; BMI 23.8
[2022-06-30 09:55] LABS: Internal QC Validated? YES +Cl - CLEAR BKGD; Pregnancy, Urine Negative Negative
--- NOTE | 2022-06-30 10:00 | RAD_ITS ---
INDICATION: HARDWARE REMOVAL EXAMINATION/TECHNIQUE: X-RAY - RIGHT XR Foot 2 Views: Intra-Op fluoroscopic images COMPARISON: Fluoroscopic images of right forefoot from 12/30/2021 FINDINGS: 2 fluoroscopic images images of right forefoot obtained, status post removal of external fixation pin spanning first metatarsophalangeal joint. Adequate alignment of osseous structures. Interval fusion/arthrosis at first MTP joint. Total fluoroscopic exposure time is 2 seconds with total air Kerma (mGy) of 0.0118 and total DAP (cGy*cm2) 0.1975. RAD/Foot 2 Views IMPRESSION: Removal of orthopedic pin right forefoot. Electronically Signed: Enrique Roberson MD at 22:21 EST ,
[2022-06-30] MEDS: 0.9% Normal Saline 1,000 ML 25 ML IV (10:08)
--- NOTE | 2022-06-30 11:00 | FORE_PTH ---
PATIENT: TONY ZAMAN [place] [facility] [place][id number] AGE/SX: 47/F ROOM: RE06/30/[address]: Dr. Bladimir Raines DPM : 1975 BED: DIS: 06/30/2022 SPEC #: [id number] RECD: 07/04/22 09:35 STATUS: NELIA REPhil #: [id number] ZACHARIAH: 06/30/22 11:[address]: Bladimir Raines DEPT: SURGICAL PATHOLOGY RECD BY: Kelsie Carreno ENTERED: 07/04/22 09:35 SP TYPE: FOREIGN B GEOVANNA DR: Dr. Nakul Reynolds MD Tissues: FOREIGN BODY Procedures: Surgery Specimen Level I HEADER OPERATION: Foot hardware removal, screw PRE-OP DIAGNOSIS: Right foot pain TISSUE SUBMITTED: Right foot plate and screws (for gross exam only) MICROSCOPIC DIAGNOSIS Right foot plate and screws, removal: Unremarkable metallic plate and screws (gross diagnosis only). AM:yaakov 07/05/2022 MICROSCOPIC DESCRIPTION Slides are reviewed. GROSS DESCRIPTION Received in fixative is one container labeled with the patient's name and designated right foot plate and screws. The specimen consists of one green metallic plate measuring 4.6 x 1.3 x 0.1 cm and bearing the following inscription ?[id number].? Also present within the specimen container are five metallic screws averaging 1.2 cm in length and 0.4 cm in diameter. No soft tissue is submitted. / AM:yaakov 07/04/2022 CPT: 65446
[2022-06-30] MEDS: Cefazolin 2 GM in 0.9% Normal Saline 100 ML IV (12:08)
[2022-06-30] MEDS: Mupirocin Ointment 22gm Tube 1 APPLIC (12:38)
--- NOTE | 2022-06-30 12:54 | PCM.OPRPT ---
Problems Associated Problem List Diagnoses (1) Hallux rigidus of right foot: (2) Painful orthopaedic hardware: Report of Operation Date of Procedure: 06/30/22 Pre-Operative Diagnosis: 1. Painful retained hardware right foot 2. Painful tibial sesamoid secondary to impingement from screw right foot Post-Operative Diagnosis: Same Surgery/Procedure Performed:: Hardware removal right foot Description of Surgical Findings:: Upon removal of hardware first MPJ fusion was noted to be healed and intact there is no scar change. Did not have any of the superficial nerves at the site. Surgeon: Bladimir Raines principal architectural firm: None (lawrence montalvo, PGYII ) Type of Anesthesia: Local MAC Special Medications: 20cc 0.5% marcaine plain Specimen's removed: First image a plate and screw Drains: None Estimated Blood Loss (mL): Minimal Description of Procedure: Patient brought back the operating placed comfortably in supine position patient induced under MAC anesthesia. Right lower extremity was positioned did not got any external rotation well-padded ankle applied to right ankle. Preoperatively a Olson block was performed using standard technique with 10 cc of half percent Marcaine plain. Right lower extremity was then scrubbed prepped and draped using typical aseptic fashion. Was cleared by anesthesia a full-thickness incision was made to the level of the original incision along the dorsal medial first MPJ down the level plate the light was dissected out using pickups and #15 blade all screws were identified and subsequently removed using the Arthrex appropriate screwdriver. Once the screws and plate were completely removed incisional site was flushed with copious amounts normal sterile saline subcutaneous and deep closure performed with simple interrupted 4-0 Vicryl simple interrupted. Skin closure performed with horizontal mattress 4-0 Prolene. Hardware sent to pathology. Fluoroscopic imaging used to confirm hardware removal. Intraoperatively MPJ site was noted to be fused with complete osseous bridging. Rigid upon range of motion as well. Additional 10 cc half percent Marcaine plain using Olson block technique injected to site. Incision dressed with bacitracin Adaptic 4 x 4's Kerlix and 4 inch Tapan. Patient transferred to PACU vital signs stable vascular status intact all digits for further monitoring prior to discharge patient tolerated procedure and anesthesia well in apparent satisfactory condition will keep her dressing clean dry and intact ambulate with heel weightbearing to Cam walking boot and follow-up in 1 week. This procedure was performed due to some some continued pain during the postoperative period CT scan had confirmed fusion of the first metatarsal phalangeal joint and then noted to be some impingement of the central screw compression screw along the tibial sesamoid. I believe that the source of her pain removal of this will allow her to progress significantly more. Complications None Admit VTE Documentation VTE Present on Admission: Yes VTE Mechan Device Prophylaxis: SCD's VTE Pharm Prophylaxis ordered?: Yes
== END 2022-06-30 14:38 | disposition home or self-care (01) ==
LOC: SDC 09:23 → AC 09:24
PROVIDERS: PCP Family Medicine; Referring Provider Podiatrist; Visit Provider Podiatrist
PROC: (CPT 20680; principal; 2022-06-30 10:45)
DX: T84.84XA Pain due to internal orthopedic prosthetic devices, implants and grafts, initial encounter (principal); M25.569 Pain in unspecified knee; K21.9 Gastro-esophageal reflux disease without esophagitis; Z79.82 Long term (current) use of aspirin; M20.21 Hallux rigidus, right foot
CPT/HCPCS: 20680; 01480; 73620; 76000; 81025; 88300; J7030; J2405

== ENCOUNTER → 2022-07-17 | Outpatient (CLI) | payer BC, SELFPAY ==
--- NOTE | 2022-07-17 10:54 | VDLE_ITS ---
Reason For Study: LEG SWELLING RIGHT LEFT GSV is normal. LT GSV previous ablation noted by patient and CFV is compressible, spontaneous, phasic, Medical HX. competent and demonstrates normal CFV is compressible, spontaneous, phasic, augmentation. competent, and demonstrates normal FV is compressible, spontaneous, phasic, augmentation. competent and demonstrates normal FV is compressible, spontaneous, phasic, augmentation. competent and demonstrates normal POP V is compressible, spontaneous, phasic, augmentation. competent and demonstrates normal POP V is compressible, spontaneous, phasic, augmentation. competent and demonstrates normal T/P Trunk is compressible. augmentation. PTV is compressible. T/P Trunk is compressible. RT PerV is compressible. PTV is compressible. Procedure LT PerV is compressible. This is a venous duplex using B-mode, color flow and spectral Doppler. Exam performed in department. The exam was diagnostic. A preliminary report was called and/or faxed to Dr. Raines. VL/Venous Duplex US - Jean Extrem Interpretation Summary Deep veins of the lower extremities are bilaterally patent and compressible seg mentally. There is no evidence of deep vein thrombosis on either side. Valvular competence appears in tact within the proximal deep venous systems bilaterally. The right great saphenous vein appear s patent and compressible segmentally. The left great saphenous vein has been previously abl ated. Ordering Physician: Bladimir Raines Referring Physician: Nakul Reynolds Performed By: Sandeep Poe, RVT
== END | disposition home or self-care (01) ==
LOC: CVS 10:50
PROVIDERS: PCP Family Medicine; Referring Provider Podiatrist; Visit Provider Podiatrist
DX: R22.43 Localized swelling, mass and lump, lower limb, bilateral (principal)
CPT/HCPCS: 93970

== ENCOUNTER → 2022-07-20 | Outpatient (CLI) | payer BC, SELFPAY ==
[2022-07-20 12:46] LABS: Anion Gap 8 (5-15); BUN 18 mg/dL (7-18); Calcium,Total 9.5 mg/dL (8.5-10.1); Chloride 106 mmol/L (98-107); Cholesterol 167 mg/dL (200); Creatinine, Serum 0.86 mg/dL (0.55-1.02); EST Glomerular Filtration Rate 75 mL/min (>60); Est Glom Filt Rate - Afr Amer 91 mL/min (>60); Glucose 92 mg/dL (74-106); High Density Lipoprotein 71 mg/dL; Potassium 4.6 mmol/L (3.5-5.1); Sodium Level 138 mmol/L (136-145); Triglycerides 117 mg/dL; Very Low Density Lipoprotein 23 mg/dL (5-40)
== END | disposition home or self-care (01) ==
PROVIDERS: PCP Family Medicine; Visit Provider Nurse Practitioner Family
DX: Z13.1 Encounter for screening for diabetes mellitus (principal); Z13.220 Encounter for screening for lipoid disorders
CPT/HCPCS: 36415; 80048; 80061

== ENCOUNTER → 2022-08-01 | Outpatient (CLI) | payer BC, SELFPAY ==
--- NOTE | 2022-08-01 09:47 | BI_ITS ---
MAMMOGRAPHY - BILATERAL SCREENING REASON FOR EXAM: Female, 47 years old. Routine annual screening examination. PERTINENT HISTORY: Mother with breast cancer. TECHNIQUE: Digital bilateral breast linsey (3D mammographic acquisition) in the CC and MLO projections. 2-D mediolateral oblique (MLO) and craniocaudad (CC) views of both breasts were obtained. CAD: Full Field Digital Mammography with Computer Added Detection was performed. COMPARISON: Comparison is made with prior outside examination dated 09/21/2015. FINDINGS: Breast Composition: The breasts are heterogeneously dense, which may obscure small masses. There are no dominant masses or suspicious calcifications. No other significant abnormalities are identified. There has been no significant change since the prior study. BI/SCRN MAMM (CAD)W/LINSEY BILAT IMPRESSION: Stable bilateral screening mammogram. Yearly follow-up mammogram recommended. (A) ASSESSMENT CATEGORY: BIRADS Category 1: Negative. A letter regarding these results will be sent to the patient by the facility within 30 days. Approximately 10% of breast cancers are not detected by mammography. A normal mammogram should not delay biopsy of a clinically suspicious abnormality. [id number] Electronically Signed: Jaylon Saenz MD at 8:49 EST ,
== END | disposition home or self-care (01) ==
LOC: OPBI 09:46
PROVIDERS: PCP Family Medicine; Referring Provider Nurse Practitioner Family; Visit Provider Nurse Practitioner Family
DX: Z12.31 Encounter for screening mammogram for malignant neoplasm of breast (principal); Z80.3 Family history of malignant neoplasm of breast
CPT/HCPCS: 77063; 77067

== ENCOUNTER 2022-09-27 12:00 | Outpatient (RCR) | payer BC, SELFPAY ==
--- NOTE | 2022-08-07 15:34 | HP.PTEVAL ---
Patient's Visit Information TONY ZAMAN is a 47 year old F referred to Physical Therapy by Dr. Bladimir Raines DPM with a diagnosis of R hallux rigidus. Date of Evaluation: 08/07/22 Physical Therapist: Imer Lopez DPT - Visit Plan Frequency: 2-3x /Week Duration: 6 Weeks Plan: Start with gentle ROM throughout. I gave her instruction on contrast baths. Trial TENS vs fluido for hyper sensitivity. Add in manual progressing to general mobility and gait training. - Subjective Pt. is here today for her initial evaluation with diagnosis of R hallux rigidus. Pt had a 1st MPJ fusion last December (2021), then subsequent removal of hardware on 06/30/22. Pt. reports feeling much better than prior to second surgery, but is still having issues with walking. Pt. reports being out of CAM boot for most of her mobility, but will still use for longer walking. She has less stabbing pain at bottom of her foot with standing and walking. She is still having some issues with hypersensitivity along her incision on the top of her foot. Pt. is hopeful to get back to walking, standing without issues. - Pain R 1st toe Pain Intensity (Out of 10): 3 Pain Intensity Range: 1, 7 - Objective POSTURE: Pt. has decent posture in stance. Equal wt. shift noted between BLEs. PALPATION: Pt. has marked hypersensitivity along dorsum of 1st L toe. Pt. has some light bruising along proximal interphalangeal joint, but minimal. No marked edema noted. NEURO: hypersensitivity noted to light touch throughout 1st tarsal and metatarsal. Pt. has 2+ Achilles and Patellar DTR bilaterally. ROM: Pt. has very limited ROM at MTJ, overall good ankle ROM without pain. Pt. limited with MTJ ROM secondary to pain and stiffness. MMT: R ankle 5/5 throughout, R 2nd-5th toe flexion 4/5, ext 4/5 1st great toe: limited secondary to stiffness. GAIT: Pt. ambulates without AD slippers on. Pt. reports not being able to wear normal shoes secondary to pain. Pt. has limited forefoot rocker moment and ends up extending her R hip and knee to make up for her lack of forefoot pressure. STAIRS: Pt. is able - Balance/Special Test Scores Lower Extremity Functional Score: 42 - Goals Goal 1:: LTG: Pt. to be I with HEP. Goal Time Frame: 4-6 Weeks Goal 2:: STG: Pt. to be able to ambulate throughout her home without increase in symptoms. Goal Time Frame: 2-4 Weeks Goal 3:: LTG: Pt. to ambulate unlimited distances without increase in R great toe pain. Goal Time Frame: 4-6 Weeks Goal 4:: STG: Pt. to tolerated her foot in a normal shoe. Goal Time Frame: 2 Weeks Goal 5:: LTG: pt. to have improved gait mechanics without increase in symptoms. - Rehabilitation Potential Physical Therapy Diagnosis: Pt. has signs and symptoms of R hallux rigidus. Pt. has marked loss of mobility at her MPJ. Due to this lack of mobility she has an altered gait mechanics and tolerance. Pt. also has marked hyper sensitivity at the dorsum of her 1st toe. Pt. would benefit from PT to work on the above limitations progressing back to all activities without limitations. Rehabilitation Potential: Good - Anticipated Interventions Patient/Client Instruction: Educate patient on: Condition, Plan of Care, Risk Factors, Benefits of Fitness Program For the Purpose of:: To facilitate caregiver knowledge, To improve self management, To prevent re-injury, To improve ability to perform tasks related to life management, To improve tolerance to ADL's Therapeutic Exercise to Include: Strength training, Power training, Flexibilty training, Gait and locomotor training, Passive ROM, Active ROM For the Purpose of:: To decrease pain, To increase ROM, To improve nutrient delivery to tissue, To increase oxygenation perfusion, To improve muscle performance and motor function, To improve gait and locomotor functions, To improve health of tissue, To decrease soft tissue restriction, To increase flexibility/ROM, To improve endurance, To improve balance Other: desensitization Manual Therapy Techniques to Include: Mobilization Comment: desensitization For the Purpose of:: To decrease pain, To increase ROM, To improve nutrient delivery to tissue, To improve muscle performance and motor function, To improve ability to perform ADL's Thank you for the opportunity to evaluate your patient. For Medicare and Medicare HMO plans, please review the plan of care and approve it. It will need to be FAXED BACK to us at [phone] for Medicare purposes. For Medicare only, by signing this I certify the plan of care. Please let me know if there are questions or concerns regarding this plan of care. Physician Signature: Date:
--- NOTE | 2022-09-06 15:40 | HP.PTREVAL ---
Dr. Bladimir Raines, DPM, It has been my pleasure to treat TONY ZAMAN over the last 6 visits for R hallux rigidus. Please see the progress note below for an update on the physical therapy plan of care! Subjective: Pt. reports minimal soreness, but did a lot over the weekend. She is overall pleased with her progression. Objective/Function: ROM: Pt. has very limited 1st metatarsalphelangeal joint, but has improved DF and improved proximal interphalangeal joint ROM, especially into extension. MMT: ankle DF 5-/5, PF 5-/5, 1st toe ext 4/5, flexion 4/5. gait: pt. ambulates with improved pattern and overall decreased antalgic pattern. Pt. has improved tolerance with forefoot rocker moment and decreased R knee hyper extension to compensate. STAIRS: ascending no issues with 1 HR, descending 1 HR with slight early heel off during end of stance phase on R side. Mild increase in symptoms. Plan Plan: Cont. with PT x2 per week. Progress CKC exercises, gait progression, LE strengthening as tolerated. Balance/Gait/Functional tests - Balance/Special Test Scores Lower Extremity Functional Score: 54 Goals Goal 1:: LTG: Pt. to be I with HEP. Goal Time Frame: 4-6 Weeks Goal Progress: Progressing Goal 2:: STG: Pt. to be able to ambulate throughout her home without increase in symptoms. Goal Time Frame: 2-4 Weeks Goal Progress: Progressing Goal 3:: LTG: Pt. to ambulate unlimited distances without increase in R great toe pain. Goal Time Frame: 2-4 Weeks Goal Progress: Progressing Goal 4:: STG: Pt. to tolerated her foot in a normal shoe. Goal Time Frame: 2-4 Weeks Goal Progress: Progressing Goal 5:: LTG: pt. to have improved gait mechanics without increase in symptoms. Goal Time Frame: 2-4 Weeks Goal Progress: Progressing Anticipated Interventions Patient/Client Instruction: Educate patient on: Condition, Plan of Care, Risk Factors, Benefits of Fitness Program For the Purpose of:: To facilitate caregiver knowledge, To improve self management, To prevent re-injury, To improve ability to perform tasks related to life management, To improve tolerance to ADL's Therapeutic Exercise to Include: Strength training, Power training, Flexibilty training, Gait and locomotor training, Passive ROM, Active ROM For the Purpose of:: To decrease pain, To increase ROM, To improve nutrient delivery to tissue, To increase oxygenation perfusion, To improve muscle performance and motor function, To improve gait and locomotor functions, To improve health of tissue, To decrease soft tissue restriction, To increase flexibility/ROM, To improve endurance, To improve balance Other: desensitization Manual Therapy Techniques to Include: Mobilization Comment: desensitization For the Purpose of:: To decrease pain, To increase ROM, To improve nutrient delivery to tissue, To improve muscle performance and motor function, To improve ability to perform ADL's Please do not hesitate to contact me at [phone] by phone or if you have questions or concerns regarding this new plan of care! Sincerely, Imer Lopez DPT
--- NOTE | 2022-09-27 12:27 | HP.PTDCSUM ---
It has been my pleasure to treat TONY ZAMAN referred by Dr. Bladimir Raines DPM, with the diagnosis of R hallux rigidus for a total of 12 visit(s). Discharge Date: 09/27/22 Please see the following information for a summary of their discharge status. Subjective: Pt. reports beign 85% better overall. R 1st toe Pain Intensity (Out of 10): 2 % Improvement: 80 Objective/Function: ROM: pt. is stiff as expected in her 1st toe on the R side. Normal ankle ROM noted. MMT: Pt. has 5/5 strength throughout ankle. GAIT: pt. ambulated better, but still has limited R ankle forefoot rocker moment, but much improved tolerance with walking. Pt. is upto walking 0.5-1 mile on Tmill at home and walking normal daily activities. Pt. is I with HEP. Ara reports no questions currently. Plan is to progress her walking program both on Tmill and outside. She is add in some her her LE strengthening exercises as well. Goal 1:: LTG: Pt. to be I with HEP. Goal Progress: Goal Met Goal 2:: STG: Pt. to be able to ambulate throughout her home without increase in symptoms. Goal Progress: Goal Met Goal 3:: LTG: Pt. to ambulate unlimited distances without increase in R great toe pain. Goal Progress: Progressing Goal 4:: STG: Pt. to tolerated her foot in a normal shoe. Goal Progress: Goal Met Goal 5:: LTG: pt. to have improved gait mechanics without increase in symptoms. Goal Progress: Progressing Plan: Pt. to be DC to HEP at this point in time. Discharge Comments: Ara is doing much better overall. Pt. still has the limited ROM of her R great toe, but has a much improved toelrance to activities. She still has some limitation with her gait due to reduced forefoot rocker moment. Pt. is I with her HEP and is to continue with her walking program. Pt. will be DC from PT at this point in time. If there are questions or concerns regarding this patient's physical therapy, please feel free to call me at [phone]. Thank you for the referral of this patient. Sincerely, Imer Lopez, CYDNEYT Balance/Gait/Functional tests - Balance/Special Test Scores Lower Extremity Functional Score: 63
== END 2022-09-27 19:00 | disposition home or self-care (01) ==
LOC: PT 12:00
PROVIDERS: PCP Family Medicine; Referring Provider Podiatrist; Visit Provider Podiatrist
DX: M20.21 Hallux rigidus, right foot (principal); Z47.89 Encounter for other orthopedic aftercare
CPT/HCPCS: 97022; 97110; 97140; 97161; 97164

== ENCOUNTER 2024-05-02 15:20 | Outpatient (CLI) | payer OTHER, SELFPAY ==
[2024-05-14 10:10] LABS: HPV APTIMA, High Risk Negative (Negative)
[2024-05-14 14:07] LABS: HPV Reflexed? YES, CHARGE PATIENT
== END 2024-05-02 23:59 | disposition home or self-care (01) ==
PROVIDERS: Registered Nurse; PCP Family Medicine
DX: Z12.4 Encounter for screening for malignant neoplasm of cervix (principal)
CPT/HCPCS: 87624; 88175; G0145